=== PATIENT | male | born 1960 | race Caucasian/White ===

== ENCOUNTER 2016-09-01 16:52 | Day surgery (SDC) | payer OTHER ==
[~2016-09-01] VITALS: Ht 177.8 cm; Wt 92.1 kg
[~2016-09-01 16:52] MED LIST: ASPI-587 PO; CITA20TA4 PO; LOVA20TA2 PO; LOVA40TA2 PO; MTF500T PO; MULT-974 PO; NAPR-243 PO; NAPR-684 PO; OMEP20CA12 PO; OMG1KC PO; PSYL1PAC10 PO; RABE20TA PO; SIMV80TA3 PO
[2016-09-01 16:58] VITALS: BP 137/85
--- NOTE | 2016-09-01 17:33 | Cardiology History & Physical ---
HPI-Cardiology Cardiology H&P Date of Admission 09/01/16 Primary Care Physician Lm,[facility] Attending Physician Steve Boss MD, MA FACP [facility] Consulting Physician NAY CC: Chest pain HPI: 56 yo man with midsternal and L parasternal pain since yesterday afternoon that has waxed and waned but not resolved. Went to the [facility] from where he was transferred to this hosp. Pain radiates to mid back and L shoulder and L arm , varying from mild to severe, improved with nitro and with morphine. He has intermittently had nausea or flushing or a feeling of rapid heart beat with this discomfort. Discomfort gets somewhat worse with exertion. Has not such discomfort before, although did use to have chest pain three years that was somewhat different and that has not recurred. Also notes exertional dyspnea for the last 1-2 weeks Review of Systems-Cardiology Review of Systems Date Seen by Provider: Sep 01, 2016 Time Seen by Provider: 17:30 Constitutional: No weight loss, No weight gain Eyes: No vision change Ears/Nose/Throat: No ear discharge, No nasal drainage, No recent hearing loss Respiratory: As described under HPI Cardiovascular: As described under HPI Gastrointestinal: No constipation, No diarrhea, nausea, vomiting (one episode of vomiting on 08/30/16) Genitourinary: No dysuria, No hematuria, No urine frequency changes Musculoskeletal: back pain (chronic), joint pain (chronic), neck pain (chronic) Skin: No rash, No ulcerations Psychiatric/Neurological: No focal weakness, No syncope Hematologic: No bleeding abnormalities [id number]-[id number]-Xdaoos Hx Patient Social History Alcohol Use: Denies Use Recreational Drug Use: No Smoking Status: Former Smoker Recent Foreign Travel: No Physical Abuse Screen: No Sexual Abuse: No Immunizations Up To Date Tetanus Booster (TDap): More than 5yrs Past Medical History PMH As described under Assessment. Family Medical History Family Medical History: Mother had FL in her 30s Mother of [place] in her 50s Multiple uncles have had MIs at a relatively young age Allergies and Home Medications Allergies Coded Allergies: NKANo Known Allergies (Verified Allergy, Unknown, 09/01/05) Home Medications Aspirin 81 Mg Tablet.dr, 81 MG PO DAILY, (Reported) Citalopram Hydrobromide 20 Mg Tablet, 20 MG PO HS, (Reported) Lovastatin 40 Mg Tablet, 40 MG PO DAILY for 30 Days Prescribed by: VIJAY SAMANIEGO on 04/13/13 1558 Metformin Hcl 500 Mg Tab, 500 MG PO DAILY, #30 Prescribed by: VIJAY SAMANIEGO on 04/13/13 1558 Multivitamin 1 Each Tablet, 1 TAB PO DAILY, (Reported) Naproxen 500 Mg Tablet, 500 MG PO BID, (Reported) [place] 3 Polyunsat Fatty Acids 1,000 Mg Cap, 1,000 MG PO DAILY, (Reported) Omeprazole 20 Mg Capsule.dr, 20 MG PO DAILY, (Reported) Psyllium Seed/Sucrose 1 Each Packet, 1 PACKET PO BID, (Reported) Rabeprazole Sodium 20 Mg Tablet.dr, 20 MG PO DAILY for 30 Days Prescribed by: VIJAY SAMANIEGO on 04/13/138 Physical Exam-Cardiology Physical Exam Vital Signs/I&O Capillary Refill : Constitutional: AAO x 3, well-developed, well-nourished HEENT: PERRL, EOMI, hearing is well preserved, No xanthelasmas are seen Neck: No carotid bruit, carotid pulses are 2 + bilaterally, with good upstrokes Respiratory: No accessory muscle use, lungs clear to percussion, lungs clear to auscultation Cardiovascular: regular rate-rhythm, S1 and S2, systolic murmur (faint SPIKE at card base) Gastrointestinal: No tender, No guarding, No rebound, audible bowel sounds Extremities: No clubbing, No cyanosis, No significant edema Neurologic/Psychiatric: grossly intact Skin: No rash, No ulcerations Data Review Labs Labs on 09/01/16 at the [facility]: AST/ALT 22/23, CK 200, Troponin <0.02, Mg 2.2H/H 13.3/40.6, Plt 174k, Na 140, K 4.5, Cr 1.05 ECG Impression ECG Comment ECG at [facility] at 12:46 on 09/01/16: NSR without evidence of acute ischemia or infarction A/P-Cardiology Assessment/Admission Diagnosis * Chest discomfort of undetermined etiology * Hypertension * DM II, borderline * Former tobacco use, quit in early * Hyperlipidemia * Family history of early CAD * Anxiety and depression, by history, controlled Discussion and Recomendations * Given multiple risk factors and new chest pain some features of which are suggestive of new-onset angina, further card w/u is recommended. We discussed options. He chooses card cath. That appears reasonable. We discussed the rationale, procedure, risks, benefits, potential complications, and alternatives of card cath with him and answered questions. He understands and provides informed consent * Treatment with beta-blockers and aspirin has been initiated at the [facility] * Further recs to be based on his hosp course STEVE BOSS MD FACP [facility]S Sep 01, 2016 17:33
[2016-09-01] MEDS ORDERED: ENOXAPARIN 40 MG/0.4 ML (LOVENOX) SYR SC SCH (18:00)
[2016-09-01] MEDS ORDERED: ONDANSETRON 4 MG/2 ML (SDV) Z0FRAN IVP PRN (18:00)
[2016-09-01] MEDS ORDERED: CATHETER FLUSH 10 ML SYR IV PRN (18:15)
[2016-09-01] MEDS: NS IV 1000 ML 1,000 ML IV SCH (18:49)
[2016-09-01] MEDS: fentaNYL INJECTION 100 MCG/2 ML AMP IVP PRN (18:50)
[2016-09-01] MEDS ORDERED: FLUO20CA42 PO (19:57)
[2016-09-01] MEDS ORDERED: LISI-556 PO (19:57)
[2016-09-01] MEDS ORDERED: BUPR-42 PO (19:57)
[2016-09-01] MEDS ORDERED: METF500T4 PO (19:57)
[2016-09-01] MEDS ORDERED: METO-333 PO (19:57)
[2016-09-01] MEDS ORDERED: ALPR0.5T PO (19:57)
[2016-09-01 20:00] VITALS: BP 122/88
[2016-09-01] MEDS ORDERED: ALPRAZolam 0.5 MG (XANAX) TAB PO PRN (21:00)
[2016-09-01] MEDS ORDERED: buPROPion XL 150 MG (WELLBUTRIN XL) NON-FORM PO SCH (21:00)
[2016-09-01] MEDS ORDERED: ACETAMINOPHEN 500 MG TAB (TYLENOL) PO PRN (21:15)
[2016-09-02] VITALS: BP 120/86
[2016-09-02 04:00] VITALS: BP 114/76
[2016-09-02 04:21] LABS: BASOPHILS % (AUTO) 1 % (0-10); EOSINOPHILS # (AUTO) 0.2 10^3/uL (0.0-0.3); EOSINOPHILS % (AUTO) 4 % (0-10); LYMPHOCYTES # (AUTO) 2.8 X 10^3 (1.0-4.0); LYMPHOCYTES % (AUTO) 52 % (12-44); MEAN CORPUSCULAR HEMOGLOBIN 30 PG (25-34); MEAN CORPUSCULAR HGB CONC 33 G/DL (32-36); MEAN CORPUSCULAR VOLUME 92 FL (80-99); MONOCYTES # (AUTO) 0.5 X 10^3 (0.0-1.0); MONOCYTES % (AUTO) 9 % (0-12); NEUTROPHILS # (AUTO) 1.9 X 10^3 (1.8-7.8); NEUTROPHILS % (AUTO) 35 % (42-75); PLATELET COUNT 154 10^3/uL (130-400); RED BLOOD COUNT 4.34 10^6/uL (4.35-5.85); RED CELL DISTRIBUTION WIDTH 13.7 % (10.0-14.5); WHITE BLOOD COUNT 5.3 10^3/uL (4.3-11.0)
[2016-09-02 04:29] LABS: PROTHROMBIN TIME PATIENT 12.6 SEC (12.2-14.7)
[2016-09-02 04:47] LABS: ALANINE AMINOTRANSFERASE 20 U/L (0-55); ALBUMIN 3.8 GM/DL (3.2-4.5); ANION GAP 12 MMOL/L (5-14); ASPARTATE AMINO TRANSFERASE 20 U/L (5-34); BILIRUBIN,TOTAL 0.4 MG/DL (0.1-1.0); BLOOD UREA NITROGEN 13 MG/DL (7-18); BUN/CREATININE RATIO 13 (0-20); CARBON DIOXIDE 22 MMOL/L (21-32); CHLORIDE 108 MMOL/L (98-107); CHOLESTEROL 240 MG/DL (< 200); CREATININE SERUM 1.01 MG/DL (0.60-1.30); DIRECT LDL 172 MG/DL (1-129); GFR ESTIMATED > 60; GLUCOSE 90 MG/DL (70-105); HEMOLYSIS 8 (0-29); ICTERUS 0.5 (0-1.9); LIPEMIA 7 (0-49); MAGNESIUM 2.2 MG/DL (1.8-2.4); SODIUM 142 MMOL/L (135-145); TOTAL PROTEIN 6.3 GM/DL (6.4-8.2); TRIGLYCERIDES 242 MG/DL (<150); VLDL CHOLESTEROL 48 MG/DL (5-40)
[2016-09-02] MEDS ORDERED: buPROPion SR 150 MG (WELLBUTRIN SR) TAB PO SCH (07:00)
[2016-09-02] MEDS ORDERED: metFORMIN 500 MG (GLUCOPHAGE) TAB PO SCH (07:00)
[2016-09-02] MEDS ORDERED: PANTOPRAZOLE 40 MG (PROTONIX) TAB PO SCH (07:00)
[2016-09-02 08:00] VITALS: BP 132/89
[2016-09-02] MEDS ORDERED: OMEGA 3 (FISH OIL) 1000 MG CAP PO SCH (08:00)
[2016-09-02] MEDS ORDERED: MULTIVIT W/MINERALS TAB (THERAGRAN M) PO SCH (08:00)
--- NOTE | 2016-09-02 08:35 | Diagnostic Imaging Report ---
PA and lateral views of the chest. INDICATION: Chest pain. FINDINGS: The lungs are hyperinflated. The heart size is normal. No effusion or pneumothorax. No focal consolidation. The mediastinum and harriet appear unremarkable. IMPRESSION: Hyperinflated clear lungs. Dictated by: Dictated on workstation # [id number]
[2016-09-02] MEDS ORDERED: NON-FORMULARY MEDICATION 1 EA EA (Rabeprazole Sodium (Aciphex) 20 MG) PO SCH (09:00)
[2016-09-02] MEDS ORDERED: ASPIRIN 81 MG CHEW (CHILDREN'S ASA) PO SCH (09:00)
[2016-09-02] MEDS ORDERED: lisINopril 5 MG (PRINIVIL) TABLET PO SCH (09:00)
[2016-09-02] MEDS ORDERED: meTOproloL SUCCINATE 50 MG (TOPROL XL) TAB PO SCH (09:00)
[2016-09-02] MEDS ORDERED: FLUoxetine HCL 20 MG (PROzac) CAP PO SCH (09:00)
[2016-09-02] MEDS ORDERED: NON-FORMULARY MEDICATION 1 EA EA (Lovastatin 40 MG) PO SCH (09:00)
[2016-09-02] MEDS: fentaNYL INJECTION 100 MCG/2 ML AMP IVP PRN (09:01)
[2016-09-02] MEDS: NS IV 1000 ML 1,000 ML IV SCH (09:07)
[2016-09-02] MEDS ORDERED: NS IV 1000 ML 0 ML ONE (10:56)
[2016-09-02] MEDS ORDERED: HEParin (CATH LAB) 2,000 ML IV ONE (10:56)
[2016-09-02] MEDS ORDERED: PSYL174P2 PO (11:08)
[2016-09-02] MEDS ORDERED: LOVA40TA2 PO (11:08)
[2016-09-02] MEDS ORDERED: fentaNYL INJECTION 100 MCG/2 ML AMP ONE (11:10)
[2016-09-02] MEDS ORDERED: diphenhydrAMINE 50 MG/ML INJ (BENADRYL) ONE (11:10)
[2016-09-02] MEDS ORDERED: MIDAZOLAM 5 MG/5 ML (VERSED) VIAL ONE (11:10)
--- NOTE | 2016-09-02 11:16 | Cardiac Procedure Note-CS/ASA ---
Pre-Procedure Note Pre-Op Procedure Note H&P Reviewed The H&P was reviewed, patient examined and no changes noted. Date H&P Reviewed: Sep 02, 2016 Time H&P Reviewed: 11:16 Conscious Sedation Pre-Proced Time Reviewed: 11:16 ASA Class: 3 Airway Mallampati Classification: (tribe appropriate class) I. II. III, IV Lungs Heart ASA score ASA 1: a normal healthy patient ASA 2: a patient with a mild systemic disease (mid diabetes, controlled hypertension, obesity ASA 3: a patient with a severe systemic disease that limits activity (angina , COPD, prior Myocardial infarction) ASA 4: a patient with an incapacitating disease that is a constant threat to life (CHF, renal failure) ASA 5: a moribund patient not expected to survive 24 hrs. (ruptured aneurysm) ASA 6: a declared brain patient whose organs are being harvested. For emergent operations, add the letter E after the classification Grade 2 Sedation Plan: Analgesia, Amnesia, Plan communicated to team members, Discussed options with patient/fam, Discussed risks with patient/fam Note The patient is an appropriate candidate to undergo the planned procedure, sedation, and anesthesia. The patient immediately re-assessed prior to indication. CONCEPCION ZELAYA MD FACP [facility]S Sep 02, 2016 11:16
[2016-09-02 12:00] VITALS: BP 128/72
[2016-09-02] MEDS ORDERED: NS IV 1000 ML 1,000 ML IV SCH (12:31)
--- NOTE | 2016-09-02 12:40 | Progress Note-Cardiology ---
Cardiology SOAP Progress Note Subjective: Has continued to have chest discomfort, although much better compared to two days ago. No pleuritic component. No palp or syncope or dyspnea or other symptoms Objective: I&O/Vital Signs Vital Sign - Last 12Hours 09/02/16 09/02/16 09/02/16 09/02/16 01:00 04:00 04:00 07:00 Temp 97.8 Pulse 70 61 70 Resp 21 B/P (MAP) 114/76 Pulse Ox 98 97 O2 Delivery Room Air Room Air 09/02/16 09/02/16 09/02/16 08:00 08:00 09:00 Temp 97.4 Pulse 78 Resp 18 B/P (MAP) 132/89 Pulse Ox 98 98 98 O2 Delivery Room Air Room Air Room Air Intake and Output 09/02/16 00:00 Intake Total 100 ml Balance 100 ml Weight (Pounds): 203 Weight (Ounces): 0.0 Weight (Calculated Kilograms): 92.657491 Constitutional: AAO x 3, well-developed, well-nourished Respiratory: No accessory muscle use, lungs clear to percussion, lungs clear to auscultation Cardiovascular: regular rate-rhythm, S1 and S2, systolic murmur (faint SPIKE at card base) Gastrointestional: No tender, No guarding, No rebound, audible bowel sounds Extremities: No clubbing, No cyanosis, No significant edema Neurologic/Psychiatric: grossly intact Skin: No rash, No ulcerations Results/Procedures: Labs Laboratory Tests 09/01/16 18:05: Troponin I < 0.30 09/02/16 03:32: White Blood Count 5.3, Red Blood Count 4.34L, Hemoglobin 13.1L, Hematocrit 40, Mean Corpuscular Volume 92, Mean Corpuscular Hemoglobin 30, Mean Corpuscular Hemoglobin Concent 33, Red Cell Distribution Width 13.7, Platelet Count 154, Mean Platelet Volume 10.0, Neutrophils (%) (Auto) 35L, Lymphocytes (%) (Auto) 52H, Monocytes (%) (Auto) 9, Eosinophils (%) (Auto) 4, Basophils (%) (Auto) 1, Neutrophils # (Auto) 1.9, Lymphocytes # (Auto) 2.8, Monocytes # (Auto) 0.5, Eosinophils # (Auto) 0.2, Basophils # (Auto) 0.0, Prothrombin Time 12.6, INR Comment 1.0, Activated Partial Thromboplast Time 31, Sodium Level 142, Potassium Level 4.0, Chloride Level 108H, Carbon Dioxide Level 22, Anion Gap 12 , Blood Urea Nitrogen 13, Creatinine 1.01, Estimat Glomerular Filtration Rate > 60, BUN/Creatinine Ratio 13, Glucose Level 90, Calcium Level 9.0, Magnesium Level 2.2, Total Bilirubin 0.4, Aspartate Amino Transf (AST/SGOT) 20, Alanine Aminotransferase (ALT/SGPT) 20, Alkaline Phosphatase 98, Total Protein 6.3L, Albumin 3.8, Triglycerides Level 242H, Cholesterol Level 240H, LDL Cholesterol Direct 172H, VLDL Cholesterol 48H, HDL Cholesterol 34L, Thyroid Stimulating Hormone (TSH) 1.70 Laboratory Tests 09/02/16 03:32 A/P: Assessment: Chest discomfort of undetermined etiology, non-cardiac Cardiac cath of 09/02/16: angiographically normal coronaries, LVEF 65%, LVEDP 15 mmHg, no significant MR, no evidence of thoracic aortic aneurysm or dissection Echo of 09/02/16: normal LVEF (50-55%), no significant valvular heart disease, no evidence of intracardiac shunt or pulmonary hypertension COPD suspected. Chest x-ray of 09/02/16: hyperinflation of lungs Hypertension DM II, borderline Former tobacco use, quit in early Hyperlipidemia, not well controlled Family history of early CAD Anxiety and depression, by history, controlled Plan: * We discussed the findings of his card w/u with him and his and answered questions * No evidence of a card etiology for symptoms * Symptoms much improved * We have advise f/u with his PCP AZIZA for eval for noncardiac causes of chest discomfort * Risk factor modification discussed and advised * We have recommended statin therapy for hyperlipidemia and have advised f/u lab work in 4-6 weeks CONCEPCION ZELAYA MD FACP [facility] CCDS Sep 02, 2016 12:40
[2016-09-02] MEDS ORDERED: PATIENT MAY USE OWN MEDS, ALL PO SCH (12:45)
--- NOTE | 2016-09-02 12:56 | Cardiology Discharge Summary ---
Diagnosis/Chief Complaint Date of Admission Sep 01, 2016 at 16:52 Date of Discharge Admission Diagnosis * Chest discomfort of undetermined etiology * Hypertension * DM II, borderline * Former tobacco use, quit in early * Hyperlipidemia * Family history of early CAD * Anxiety and depression, by history, controlled Final/Discharge Diagnosis Chest discomfort of undetermined etiology, non-cardiac Cardiac cath of 09/02/16: angiographically normal coronaries, LVEF 65%, LVEDP 15 mmHg, no significant MR, no evidence of thoracic aortic aneurysm or dissection Echo of 09/02/16: normal LVEF (50-55%), no significant valvular heart disease, no evidence of intracardiac shunt or pulmonary hypertension COPD suspected. Chest x-ray of 09/02/16: hyperinflation of lungs Hypertension DM II, borderline Former tobacco use, quit in early Hyperlipidemia, not well controlled Family history of early CAD Anxiety and depression, by history, controlled Chief Complaint/HPI Chief Complaint/HPI CC: Chest pain HPI: 56 yo man with midsternal and L parasternal pain since yesterday afternoon that has waxed and waned but not resolved. Went to the [facility] from where he was transferred to this hosp. Pain radiates to mid back and L shoulder and L arm , varying from mild to severe, improved with nitro and with morphine. He has intermittently had nausea or flushing or a feeling of rapid heart beat with this discomfort. Discomfort gets somewhat worse with exertion. Has not such discomfort before, although did use to have chest pain three years that was somewhat different and that has not recurred. Also notes exertional dyspnea for the last 1-2 weeks Discharge Summary Procedures cardiac cath and echo on 09/02/16 Discussion & Recommendations Home Medications Reviewed patient Home Medication Reconciliation Form Discharge Home Medications: Reviewed and agree with Discharge Medication list on patient's Discharge Instruction sheet Clinical Quality Measures DVT/VTE Risk/Contraindication: Risk Factor Score Per Nursin RFS Level Per Nursing on Admit: 2=Moderate CONCEPCION ZELAYA MD FACP [facility]S Sep 02, 2016 12:56
--- NOTE | 2016-09-02 12:59 | Discharge Inst-Post CATH ---
Discharge Inst-CATH Post Cardiac Cath D/C Inst Follow Up/Plan F/u with PCP AZIZA F/u with Dr Boss in 4-6 weeks CARDIAC CATH DISCHARGE INSTRUCTIONS *Hold Metformin for 48 hours post heart cath. ACTIVITY * Go Home directly and rest. * Limit activity of the leg (or wrist if it was used) for 7 days including aerobics, swimming, jogging, bicycling, etc. * Restrict stair-climbing for 7 days if possible, if not, climb up with your non -cath leg, then bring together on the same step. * Avoid lifting, pushing, pulling or excessive movement of the affected extremity for 7 days. * Customary sexual activity may be resumed after 2 days-use caution not to use a position that strains or causes pain to the affected extremity. * No driving for 24 hours. * NO SMOKING. * Avoid straining for bowel movements for 7 days. * Gentle walking on level ground is allowed. * Returning to work will depend on the type of procedure and the results. Your doctor will discuss this with you. CALL YOUR DOCTOR FOR ANY OF THE FOLLOWING: *If bleeding from the puncture site occurs- Apply gentle pressure to site with clean cloth and call your doctor or EMS. * If a knot or lump forms under the skin, increases in size, or causes pain. * If bruising appears to be worsening or moving further down your leg instead of disappearing. * Temperature above 101 F. CARE OF YOUR GROIN INCISION; * Bruising or purple discoloration of the skin near the puncture site is common. * You may shower only, no bathtub bathing for 5 days. Be careful to avoid slipping as your leg may feel stiff. * If a closure device was used on your femoral artery, please see the attached guide regarding care of the device and your leg. * REMOVE the dressing from your groin the next day after your procedure in the shower. CARE OF YOUR WRIST INCISION; * Bruising or purple discoloration of the skin near the puncture site is common. * You may shower. * DO NOT submerge wrist. * Remove dressing in 24 hours. CONCEPCION BOSS MD [facility]S Sep 02, 2016 12:59
--- NOTE | 2016-09-02 13:00 | Discharge Inst-Cardiology ---
Discharge Inst-Cardiac Discharge Medications Continued Medications: Alprazolam (Xanax) 0.5 Mg Tablet 0.5 MG PO TID, TAB Aspirin (Aspir 81) 81 Mg Tablet.dr 81 MG PO DAILY, TAB Bupropion HCl (Wellbutrin Xl) 150 Mg Tab.er.24h 150 MG PO BID, TAB LAST FILLED 07/08/16 #60 Fluoxetine HCl (Prozac) 20 Mg Capsule 20 MG PO DAILY, CAP Lisinopril (Lisinopril) 5 Mg Tablet 5 MG PO DAILY, TAB LAST FILLED 07/08/16 #30 Lovastatin (Lovastatin) 40 Mg Tablet 40 MG PO DAILY LAST FILLED 07/08/16 #30 Metoprolol Tartrate (Metoprolol Tartrate) 25 Mg Tablet 25 MG PO BID, TAB LAST FILLED 07/08/16 #60 Multivitamin (Multi Vitamin Daily) 1 Each Tablet 1 TAB PO DAILY [place] 3 Polyunsat Fatty Acids (Fish Oil) 1,000 Mg Cap 1000 MG PO DAILY, CAP Psyllium Husk/Aspartame (Metamucil Powder) 174 Gm Powder 1 TSP PO BID, EA Rabeprazole Sodium (Aciphex) 20 Mg Tablet.dr 20 MG PO DAILY for 30 Days, TAB Discontinued Medications: Metformin HCl (Metformin HCl) 500 Mg Tablet 500 MG PO BID, TAB LAST FILLED 07/08/16 #60 Naproxen (Naprosyn) 500 Mg Tablet 500 MG PO BID Patient Instructions Patient Instructions: Hold METFORMIN until the morning of 09/05/16 and then resume previous home dose of metformin No tobacco use CONCEPCION ZELAYA MD FACP [facility] CCDS Sep 02, 2016 13:00
--- NOTE | 2016-09-02 13:41 | CARDIAC CATHETERIZATION ---
DATE OF SERVICE: 09/02/2016 CARDIAC CATHETERIZATION REPORT HISTORY OF PRESENT ILLNESS: The patient is a 56-year-old man who has multiple coronary artery disease risk factors and who has been experiencing chest discomfort suggestive of new onset angina. Cardiac catheterization was carried out today after having obtained an informed consent. PROCEDURE: He was brought to the cardiac catheterization laboratory in a fasting state. The right groin was prepared and draped in usual sterile fashion. Lidocaine 1% for local anesthesia. Modified Seldinger technique was to used advance a 5-Ivorian sheath in the right femoral artery. Angiography of the right femoral artery was carried out through the sheath. A 5-Ivorian JL4 catheter for left coronary angiography. A 5-Ivorian JR4 catheter for right coronary angiography. A 5-Ivorian pigtail catheter was used for left heart catheterization and left ventricular angiography. The pigtail catheter was pulled back to the aortic arch and aortic arch angiography was performed. The pigtail was then removed. The patient was transferred to the holding area for manual sheath removal. He tolerated the procedure well. HEMODYNAMICS: Left ventricular end-diastolic pressure following coronary angiography was 15 mmHg. There was no significant pressure gradient on pullback across the aortic valve. Ascending aortic pressure was 138/90 with a mean of 99 mmHg. LEFT VENTRICULAR ANGIOGRAPHY: Left ventricular angiography was carried out in the right anterior oblique projection. Global left ventricular systolic function normal. No significant regional wall motion abnormalities seen. Left ventricular ejection fraction is approximately 65%. There does not appear to be significant mitral regurgitation. AORTIC ARCH ANGIOGRAPHY: Aortic arch angiography did not indicate any significant thoracic aortic aneurysm or dissection. The neck arteries, to the extent seen, do not exhibit significant disease. CORONARY ANGIOGRAPHY: Left main coronary artery, left anterior descending artery, left circumflex artery and right coronary artery are all angiographically normal. Right coronary artery is dominant. CONCLUSIONS: 1. No angiographically significant coronary artery disease. 2. Normal global left ventricular systolic function with ejection fraction approximately 65%. 3. Mild elevation of left ventricular end-diastolic pressure. 4. No significant mitral regurgitation. 5. No evidence of any thoracic aortic aneurysm or dissection. DISCUSSION AND RECOMMENDATIONS: Based on results of the study, chest discomfort does not appear to be of cardiac origin. Continuing risk factor modification is advised. Mild elevation of left ventricular end-diastolic pressure is likely related to hypertension. Blood pressure control is advised. Outpatient followup is advised. Job ID: [id number] DocumentID: [id number] Dictated Date: 09/02/2016 12:29:24 Saw Boss Date: 09/02/2016 12:59:27 Dictated By: CONCEPCION ZELAYA MD, MA, FACP, FACC,
[2016-09-02 16:00] VITALS: BP 116/67
[2016-09-02 16:50] VITALS: BP 116/67
[2016-09-02] MEDS ORDERED: SIMvastatin 20 MG (ZOCOR) TAB PO SCH (21:00)
--- OUTSIDE RECORDS SUMMARY | 2016-09-07 17:37 | XMS REPORT ---
Author ANASTASIIA Nixon [facility] eClinicalWorks Address Unknown Phone Unavailable Care Team Providers Care Skill Training Program Coordinator Name Role Phone ANASTASIIA QUIÑONEZ CP Unavailable Allergies, Adverse Reactions, Alerts Substance Reaction Event Type N.K.D.A. Info Not Available Non Drug Allergy Problems Problem Type Condition Code Onset Dates Condition Status Assessment Unsteady gait R26.81 Active Assessment Essential hypertension I10 Active Assessment History of fall Z91.81 Active Problem Carpal tunnel syndrome, right upper limb G56.01 Active Problem Mixed hyperlipidemia E78.2 Active Problem Low back pain without sciatica, unspecified back pain laterality M54.5 Active Assessment Pain in left shoulder M25.512 Active Assessment Other chronic pain G89.29 Active Problem Diabetes type 2, controlled E11.9 Active Assessment Lumbar neuritis M54.16 Active Medications Medication Code System Code Instructions Start Date End Date Status Dosage Fish Oil [facility] [address]-74 1000 MG Orally Once a day 1 capsule Metoprolol Tartrate [facility] 07715175774 25 MG Orally Twice a day 1 tablet Xanax [facility] [address]-47 0.5 MG Orally 2 times a day May 26, 2015 1 tablet Wellbutrin SR [facility] [id number] 150 MG Orally Twice a day 1 tablet Aciphex [facility] [address]-96 20 mg Orally Once a day 1 tablet Naprosyn [facility] [address]-78 500 MG Orally every 12 hrs 1 tablet as needed Lovastatin [facility] [address]-00 40 mg Once a day TAKE ONE TABLET Metformin HCl [facility] [address]-14 500 MG Twice a day TAKE ONE TABLET Multivitamins [facility] 68[address]99 Orally not defined Fluoxetine HCl [facility] [address]-51 20 mg Orally Once a day Nov 20, 2015 1 capsule in the morning Lisinopril [facility] [address]-41 5 mg Orally Once a day 1 tablet Aspirin Adult Low Strength [facility] [address]-66 81 MG Orally Once a day 1 tablet Procedures Procedure Coding System Code Date Office Visit, Est Pt., Level 3 CPT-4 03070 Nov 20, 2015 Vital Signs Date/Time: Nov 20, 2015 Cardiac Monitoring Heart Rate 68 bpm Weight 224.5 lbs Height 69 in BMI 33.15 Index Blood Pressure Diastolic 82 mmHg Blood Pressure Systolic 142 mmHg Results No Known Results Summary Purpose eClinicalWorks Submission
--- OUTSIDE RECORDS SUMMARY | 2016-09-07 17:37 | XMS REPORT ---
Author ANASTASIIA Nixon Organization eClinicalWorks Address Unknown Phone Unavailable Care Team Providers Care Home Appliance Washing Machine Mechanic Name Role Phone ANASTASIIA QUIÑONEZ CP Unavailable Allergies, Adverse Reactions, Alerts Substance Reaction Event Type N.K.D.A. Info Not Available Non Drug Allergy Problems Problem Type Condition Code Onset Dates Condition Status Problem Carpal tunnel syndrome, right upper limb G56.01 Active Problem Mixed hyperlipidemia E78.2 Active Problem Low back pain without sciatica, unspecified back pain laterality M54.5 Active Assessment Osteoarthritis, unspecified osteoarthritis type, unspecified site M19.90 Active Assessment ADHD (attention deficit hyperactivity disorder), inattentive type F90.0 Active Problem Diabetes type 2, controlled E11.9 Active Assessment Other abnormal glucose R73.09 Active Medications Medication Code System Code Instructions Start Date End Date Status Dosage Lovastatin [facility] [address]-27 40 MG Once a day TAKE ONE TABLET Metoprolol Tartrate [facility] [address]-94 25 MG Orally Twice a day October 11, 2014 1 tablet Aciphex [facility] [address]-36 20 MG Orally Once a day 1 tablet Aspirin Adult Low Strength [facility] [address]-39 81 MG Orally Once a day 1 tablet Metformin HCl [facility] [address]-38 500 MG Twice a day TAKE ONE TABLET Wellbutrin SR [facility] [address]-13 150 MG Orally Twice a day Jan 10, 2015 1 tablet Naprosyn [facility] [address]-88 500 MG Orally every 12 hrs 1 tablet as needed Procedures Procedure Coding System Code Date Office Visit, Est Pt., Level 3 CPT-4 37585 Jan 10, 2015 GLYCATED HEMOGLOBIN TEST CPT-4 17309 Jan 10, 2015 Vital Signs Date/Time: Jan 10, 2015 Temperature 98.4 F Weight 207.9 lbs Height 69 in BMI 30.70 Index Blood Pressure Diastolic 78 mmHg Blood Pressure Systolic 116 mmHg Cardiac Monitoring Heart Rate 88 bpm Results Name Result Date Reference Range Unit Abnormality Flag A1C (IN HOUSE) Summary Purpose eClinicalWorks Submission
--- OUTSIDE RECORDS SUMMARY | 2016-09-07 17:37 | XMS REPORT ---
Author ANASTASIIA Nixon Organization [employer] Address Unknown Phone Unavailable Care Team Providers Care Ndt Inspector Name Role Phone ANASTASIIA QUIÑONEZ CP Unavailable Allergies No Known Allergies Problems Problem Type Condition Code Onset Dates Condition Status Problem Carpal tunnel syndrome, right upper limb G56.01 Active Problem Mixed hyperlipidemia E78.2 Active Problem Low back pain without sciatica, unspecified back pain laterality M54.5 Active Problem Diabetes type 2, controlled E11.9 Active Medications No Known Medications Results No Known Results Summary Purpose [employer]ClinicalWorks Submission
--- OUTSIDE RECORDS SUMMARY | 2016-09-07 17:37 | XMS REPORT ---
Author ANASTASIIA Nixon [facility] [employer] Address Unknown Phone Unavailable Care Team Providers Care Cosmetic Manager Name Role Phone ANASTASIIA QUIÑONEZ CP Unavailable Allergies, Adverse Reactions, Alerts Substance Reaction Event Type N.K.D.A. Info Not Available Non Drug Allergy Problems Problem Type Condition Code Onset Dates Condition Status Problem Low back pain without sciatica, unspecified back pain laterality M54.5 Active Problem Carpal tunnel syndrome, right upper limb G56.01 Active Problem Arthritis M19.90 Active Assessment Diabetes type 2, controlled E11.9 Active Assessment Arthritis M19.90 Active Problem Mixed hyperlipidemia E78.2 Active Problem Diabetes type 2, controlled E11.9 Active Medications Medication Code System Code Instructions Start Date End Date Status Dosage Lisinopril [facility] [address]-94 5 mg Orally Once a day 1 tablet Aciphex [facility] [address]-02 20 mg Orally Once a day 1 tablet Wellbutrin SR [facility] 77576001618 150 MG Orally Twice a day 1 tablet Xanax [facility] [address]-83 0.5 MG Orally 2 times a day as needed for anxiety May 26, 2015 1 tablet Fish Oil [facility] [address]-10 1000 MG Orally Once a day 1 capsule Naprosyn [facility] [address]-30 500 MG Orally every 12 hrs 1 tablet as needed Lovastatin [facility] [address]-06 40 mg Once a day TAKE ONE TABLET Metformin HCl [facility] [address]-47 500 MG Twice a day TAKE ONE TABLET Metoprolol Tartrate [facility] 58015129113 25 MG Orally Twice a day 1 tablet Fluoxetine HCl [facility] [address]-13 20 mg Orally Once a day Nov 20, 2015 1 capsule in the morning Aspirin Adult Low Strength [facility] [address]-53 81 MG Orally Once a day 1 tablet Multivitamins [facility] [address]30 Orally not defined Procedures Procedure Coding System Code Date GLYCATED HEMOGLOBIN TEST CPT-4 49480 Dec 22, 2015 Office Visit, Est Pt., Level 3 CPT-4 83928 Dec 22, 2015 MICROALBUMIN, SEMIQUANT CPT-4 58925 Dec 22, 2015 Vital Signs Date/Time: Dec 22, 2015 Cardiac Monitoring Heart Rate 72 bpm Weight 222 lbs Height 69 in BMI 32.78 Index Blood Pressure Diastolic 80 mmHg Blood Pressure Systolic 140 mmHg Results Name Result Date Reference Range Unit Abnormality Flag A1C (IN HOUSE) ----A1C IN HOUSE 5.6 20151222 4.3 - 5.6 % ----Previous A1c 5.5 20151222 ----Lot [id number] ----Exp date 20151222 MICROALBUMIN, URINE (IN HOUSE) ----A:C (IN HOUSE) <30mg/g 20151222 ----CRE 200 [id number] ----Color yellow 20151222 ----ALB 10 [id number] ----Exp date 20151222 ----Clarity clear 20151222 ----Lot # [id number] Summary Purpose eClinicalWorks Submission
--- OUTSIDE RECORDS SUMMARY | 2016-09-07 17:38 | XMS REPORT ---
Author Author PARISA SHEPHERD Organization [employer] Address Unknown Phone Unavailable Care Team Providers Care Precast Concrete Ironworker Name Role Phone PARISA SHEPHERD CP Unavailable Allergies, Adverse Reactions, Alerts Substance Reaction Event Type N.K.D.A. Info Not Available Non Drug Allergy Problems Problem Type Condition Code Onset Dates Condition Status Problem Carpal tunnel syndrome, right upper limb G56.01 Active Problem Mixed hyperlipidemia E78.2 Active Problem Low back pain without sciatica, unspecified back pain laterality M54.5 Active Problem Diabetes type 2, controlled E11.9 Active Assessment Ingrown right big toenail L60.0 Active Medications Medication Code System Code Instructions Start Date End Date Status Dosage Metoprolol Tartrate [facility] [address]-76 25 MG Orally Twice a day October 11, 2014 1 tablet Metformin HCl [facility] [address]-23 500 MG Twice a day TAKE ONE TABLET Lisinopril [facility] [address]-92 5 MG Orally Once a day Jan 22, 2015 1 tablet Wellbutrin SR [facility] [address]-73 150 MG Orally Twice a day Jan 10, 2015 1 tablet Aciphex [facility] [address]-75 20 MG Orally Once a day 1 tablet Naprosyn [facility] [address]-67 500 MG Orally every 12 hrs 1 tablet as needed Aspirin Adult Low Strength [facility] [address]-99 81 MG Orally Once a day 1 tablet Lovastatin [facility] [address]-74 40 MG Once a day TAKE ONE TABLET Procedures Procedure Coding System Code Date REMOVAL OF NAIL BED CPT-4 17996 Mar 28, 2015 Vital Signs Date/Time: Mar 28, 2015 Temperature 98.7 F Weight 211.9 lbs Height 69 in BMI 31.29 Index Blood Pressure Diastolic 78 mmHg Blood Pressure Systolic 122 mmHg Results Name Result Date Reference Range Unit Abnormality Flag NAIL REMOVAL PERMANENT (PARTIAL OR COMPLETE) Summary Purpose eClinicalWorks Submission
--- OUTSIDE RECORDS SUMMARY | 2016-09-07 17:38 | XMS REPORT ---
Author ANASTASIIA Nixon Organization [employer] Address Unknown Phone Unavailable Care Team Providers Care Medical Billing Specialist Name Role Phone ANASTASIIA QUIÑONEZ CP Unavailable [...] Instructions Start Date End Date Status Dosage Wellbutrin SR [facility] [address]-34 150 MG Orally Twice a day Jan 10, 2015 1 tablet Results No Known Results Summary Purpose eClinicalWorks Submission
--- OUTSIDE RECORDS SUMMARY | 2016-09-07 17:38 | XMS REPORT ---
Author ANASTASIIA Nixon Organization [employer] Address Unknown Phone Unavailable Care Team Providers Care Tack Puller Name Role Phone ANASTASIIA QUIÑONEZ CP Unavailable [...] Start Date End Date Status Dosage Lisinopril [facility] [place] [address]-44 5 MG Orally Once a day Jan 22, 2015 1 tablet Results No Known Results Summary Purpose [employer]ClinicalWorks Submission
--- OUTSIDE RECORDS SUMMARY | 2016-09-07 17:38 | XMS REPORT ---
Author ANASTASIIA Nixon Organization [employer] Address Unknown Phone Unavailable Care Team Providers Care Needleworker Name Role Phone ANASTASIIA QUIÑONEZ CP Unavailable [...]
--- OUTSIDE RECORDS SUMMARY | 2016-09-07 17:38 | XMS REPORT | Continuity of Care Document ---
Author Author [facility] Organization [facility] Address Unknown Phone Unavailable Allergies Active Description Code Type Severity Reaction Onset Reported/Identified Relationship to Patient Clinical Status Yes NKANo Known Allergies NKA Miscellaneous Allergy Unknown N/ A 09/01/2005 Medications Problems Date Dx Coded Attending Type Code Diagnosis Diagnosed By 12/09/2010 272.4 HYPERLIPIDEMIA 12/09/2010 296.90 MOOD DISORDER 12/09/2010 ANASTASIIA QUIÑONEZ APRN T 272.4 HYPERLIPIDEMIA 12/09/2010 ANASTAISIA QUIÑONEZ APRN T 296.90 MOOD DISORDER 12/09/2010 272.4 HYPERLIPIDEMIA 12/09/2010 296.90 MOOD DISORDER 12/09/2010 272.4 HYPERLIPIDEMIA 12/09/2010 296.90 MOOD DISORDER 12/09/2010 WHITE DDS, KIMBERLY J 272.4 HYPERLIPIDEMIA 12/09/2010 WHITE DDS, KIMBERLY J 296.90 MOOD DISORDER 12/09/2010 ANASTASIIA QUIÑONEZ APRN T 272.4 HYPERLIPIDEMIA 12/09/2010 OLAMIDE CHANG ANASTASIIA T 296.90 MOOD DISORDER 12/09/2010 SAMANIEGO DO, VIJAY K 272.4 HYPERLIPIDEMIA 12/09/2010 SAMANIEGO DO, VIJAY K 296.90 MOOD DISORDER 12/09/2010 ANASTASIIA QUIÑONEZ APRN T 272.4 HYPERLIPIDEMIA 12/09/2010 OLAMIDE CHANG ANASTASIIA T 296.90 MOOD DISORDER 12/09/2010 ANASTASIIA QUIÑONEZ APRN T 272.4 HYPERLIPIDEMIA 12/09/2010 OLAMIDE CHANG ANASTASIIA T 296.90 MOOD DISORDER 12/09/2010 OLAMIDE CHANG ANASTASIIA T 272.4 HYPERLIPIDEMIA 12/09/2010 OLAMIDE CHANG ANASTASIIA T 296.90 MOOD DISORDER 12/09/2010 WITT DDS DAVID 272.4 HYPERLIPIDEMIA 12/09/2010 WITT DDS, DAVID 296.90 MOOD DISORDER 12/09/2010 ANASTASIIA QUIÑONEZ APRN T 272.4 HYPERLIPIDEMIA 12/09/2010 ANASTASIIA QUIÑONEZ APRN T 296.90 MOOD DISORDER 12/09/2010 WENDIE SOTELO MD 272.4 HYPERLIPIDEMIA 12/09/2010 WENDIE SOTELO MD 296.90 MOOD DISORDER 12/09/2010 ANASTASIIA QUIÑONEZ APRN 272.4 HYPERLIPIDEMIA 12/09/2010 ANASTASIIA QUIÑONEZ APRN 296.90 MOOD DISORDER 12/09/2010 ANASTASIIA QUIÑONEZ APRN 272.4 HYPERLIPIDEMIA 12/09/2010 ANASTASIIA QUIÑONEZ APRN 296.90 MOOD DISORDER 12/09/2010 ANASTASIIA QUIÑONEZ APRN 272.4 HYPERLIPIDEMIA 12/09/2010 ANASTASIIA QUIÑONEZ APRN 296.90 MOOD DISORDER 12/09/2010 SAMANIEGO DO VIJAY K 272.4 HYPERLIPIDEMIA 12/09/2010 SAMANIEGO DO VIJAY K 296.90 MOOD DISORDER 05/23/2012 719.41 PAIN IN JOINT INVOLVING SHOULDER REGION 05/23/2012 719.45 PAIN IN JOINT INVOLVING PELVIC REGION AND THIGH 05/23/2012 724.2 LUMBAGO 05/23/2012 ANASTASIIA QUIÑONEZ APRN 719.41 PAIN IN JOINT INVOLVING SHOULDER REGION 05/23/2012 ANASTASIIA QUIÑONEZ APRN 719.45 PAIN IN JOINT INVOLVING PELVIC REGION AND THIGH 05/23/2012 ANASTASIIA QUIÑONEZ APRN 724.2 LUMBAGO 05/23/2012 719.41 PAIN IN JOINT INVOLVING SHOULDER REGION 05/23/2012 719.45 PAIN IN JOINT INVOLVING PELVIC REGION AND THIGH 05/23/2012 724.2 LUMBAGO 05/23/2012 719.41 PAIN IN JOINT INVOLVING SHOULDER REGION 05/23/2012 719.45 PAIN IN JOINT INVOLVING PELVIC REGION AND THIGH 05/23/2012 724.2 LUMBAGO 05/23/2012 KIMBERLY MCMAHAN DDS 719.41 PAIN IN JOINT INVOLVING SHOULDER REGION 05/23/2012 KIMBERLY MCMAHAN DDS 719.45 PAIN IN JOINT INVOLVING PELVIC REGION AND THIGH 05/23/2012 KIMBERLY MCMAHAN DDS J 724.2 LUMBAGO 05/23/2012 ANASTASIIA QUIÑONEZ APRN 719.41 PAIN IN JOINT INVOLVING SHOULDER REGION 05/23/2012 ANASTASIIA QUIÑONEZ APRN 719.45 PAIN IN JOINT INVOLVING PELVIC REGION AND THIGH 05/23/2012 ANASTASIIA QUIÑONEZ APRN 724.2 LUMBAGO 05/23/2012 SAMANIEGO DOVALERYA K 719.41 PAIN IN JOINT INVOLVING SHOULDER REGION 05/23/2012 SAMANIEGO DOVALERYA K 719.45 PAIN IN JOINT INVOLVING PELVIC REGION AND THIGH 05/23/2012 ADEN SMITH VIJAY K 724.2 LUMBAGO 05/23/2012 ANASTASIIA QUIÑONEZ APRN 719.41 PAIN IN JOINT INVOLVING SHOULDER REGION 05/23/2012 ANASTASIIA QUIÑONEZ APRN 719.45 PAIN IN JOINT INVOLVING PELVIC REGION AND THIGH 05/23/2012 ANASTASIIA QUIÑONEZ APRN 724.2 LUMBAGO 05/23/2012 ANASTASIIA QUIÑONEZ APRN 719.41 PAIN IN JOINT INVOLVING SHOULDER REGION 05/23/2012 ANASTASIIA QUIÑONEZ APRN 719.45 PAIN IN JOINT INVOLVING PELVIC REGION AND THIGH 05/23/2012 ANASTASIIA QUIÑONEZ APRN 724.2 LUMBAGO 05/23/2012 ANASTASIIA QUIÑONEZ APRN 719.41 PAIN IN JOINT INVOLVING SHOULDER REGION 05/23/2012 ANASTASIIA QUIÑONEZ APRN 719.45 PAIN IN JOINT INVOLVING PELVIC REGION AND THIGH 05/23/2012 ANASTASIIA QUIÑONEZ APRN 724.2 LUMBAGO 05/23/2012 EDUAR STOKESSDAVID 719.41 PAIN IN JOINT INVOLVING SHOULDER REGION 05/23/2012 EDUAR DDSDAVID 719.45 PAIN IN JOINT INVOLVING PELVIC REGION AND THIGH 05/23/2012 WITT DDSDAVID 724.2 LUMBAGO 05/23/2012 ANASTASIIA QUIÑONEZ APRN 719.41 PAIN IN JOINT INVOLVING SHOULDER REGION 05/23/2012 ANASTASIIA QUIÑONEZ APRN 719.45 PAIN IN JOINT INVOLVING PELVIC REGION AND THIGH 05/23/2012 ANASTASIIA QUIÑONEZ APRN 724.2 LUMBAGO 05/23/2012 WENDIE SOTELO MD 719.41 PAIN IN JOINT INVOLVING SHOULDER REGION 05/23/2012 WENDIE SOTELO MD 719.45 PAIN IN JOINT INVOLVING PELVIC REGION AND THIGH 05/23/2012 WENDIE SOTELO MD 724.2 LUMBAGO 05/23/2012 ANASTASIIA QUIÑONEZ APRN 719.41 PAIN IN JOINT INVOLVING SHOULDER REGION 05/23/2012 ANASTASIIA QUIÑONEZ APRN 719.45 PAIN IN JOINT INVOLVING PELVIC REGION AND THIGH 05/23/2012 ANASTASIIA QUIÑONEZ APRN 724.2 LUMBAGO 05/23/2012 ANASTASIIA QUIÑONEZ APRN 719.41 PAIN IN JOINT INVOLVING SHOULDER REGION 05/23/2012 ANASTASIIA QUIÑONEZ APRN 719.45 PAIN IN JOINT INVOLVING PELVIC REGION AND THIGH 05/23/2012 ANASTASIIA QUIÑONEZ APRN 724.2 LUMBAGO 05/23/2012 ANASTASIIA QUIÑONEZ APRN 719.41 PAIN IN JOINT INVOLVING SHOULDER REGION 05/23/2012 ANASTASIIA QUIÑONEZ APRN 719.45 PAIN IN JOINT INVOLVING PELVIC REGION AND THIGH 05/23/2012 ANASTASIIA QUIÑONEZ APRN 724.2 LUMBAGO 05/23/2012 VALERY SAMANIEGO DOA K 719.41 PAIN IN JOINT INVOLVING SHOULDER REGION 05/23/2012 SAMANIEGO DO VIJAY K 719.45 PAIN IN JOINT INVOLVING PELVIC REGION AND THIGH 05/23/2012 SAMANIEGO VALERY SMITHA K 724.2 LUMBAGO 10/27/2012 788.1 DYSURIA 10/27/2012 790.29 HYPERGLYCEMIA 10/27/2012 788.1 DYSURIA 10/27/2012 790.29 HYPERGLYCEMIA 10/27/2012 WHITE DDS, KIMBERLY J 788.1 DYSURIA 10/27/2012 WHITE DDS, KIMBERLY J 790.29 HYPERGLYCEMIA 10/27/2012 ANASTASIIA QUIÑONEZ APRN 788.1 DYSURIA 10/27/2012 ANASTASIIA QUIÑONEZ APRN 790.29 HYPERGLYCEMIA 10/27/2012 VALERY SAMANIEGO DOA K 788.1 DYSURIA 10/27/2012 VALERY SAMANIEGO DOA K 790.29 HYPERGLYCEMIA 10/27/2012 ANASTASIIA QUIÑONEZ APRN 788.1 DYSURIA 10/27/2012 ANASTASIIA QUIÑONEZ APRN 790.29 HYPERGLYCEMIA 10/27/2012 ANASTASIIA QUIÑONEZ APRN 788.1 DYSURIA 10/27/2012 ANASTASIIA QUIÑONEZ APRN 790.29 HYPERGLYCEMIA 10/27/2012 ANASTASIIA QUIÑONEZ APRN 788.1 DYSURIA 10/27/2012 ANASTASIIA QUIÑONEZ APRN 790.29 HYPERGLYCEMIA 10/27/2012 WITT DDS, DAVID 788.1 DYSURIA 10/27/2012 WITT DAVID VELOZ 790.29 HYPERGLYCEMIA 10/27/2012 ANASTASIIA QUIÑONEZ APRN 788.1 DYSURIA 10/27/2012 ANASTASIIA QUIÑONEZ APRN 790.29 HYPERGLYCEMIA 10/27/2012 WENDIE SOTELO MD 788.1 DYSURIA 10/27/2012 WENDIE SOTELO MD 790.29 HYPERGLYCEMIA 10/27/2012 ANASTASIIA QUIÑONEZ APRN T 788.1 DYSURIA 10/27/2012 ANASTASIIA QUIÑONEZ APRN T 790.29 HYPERGLYCEMIA 10/27/2012 ANASTASIIA QUIÑONEZ APRN T 788.1 DYSURIA 10/27/2012 ANASTASIIA QUIÑONEZ APRN T 790.29 HYPERGLYCEMIA 10/27/2012 ANASTASIIA QUIÑONEZ APRN 788.1 DYSURIA 10/27/2012 ANASTASIIA QUIÑONEZ APRN 790.29 HYPERGLYCEMIA 10/27/2012 SAMANIEGO DO VIJAY K 788.1 DYSURIA 10/27/2012 SAMANIEGO , VIJAY K 790.29 HYPERGLYCEMIA 04/13/2013 SAMANIEGO , VIJAY K Ot 272.4 HYPERLIPIDEMIA NEC/NOS 04/13/2013 SAMANIEGO , VIJAY K Ot 300.00 ANXIETY STATE NOS 04/13/2013 SAMANIEGO , VIJAY K Ot 397.0 TRICUSPID VALVE DISEASE 04/13/2013 SAMANIEGO DO VIJAY K Ot 401.9 HYPERTENSION NOS 04/13/2013 SAMANIEGO DO VIJAY K Ot 424.0 MITRAL VALVE DISORDER 04/13/2013 ADEN SMITH VIJAY K Ot 530.81 ESOPHAGEAL REFLUX 04/13/2013 ADEN SMITH VIJAY K Ot 719.49 JOINT PAIN-MULT JTS 04/13/2013 SAMANIEGO , VIJAY K Ot 780.8 GENERALIZED HYPERHIDROSIS 04/13/2013 ADEN SMITH VIJAY K Ot 782.0 SKIN SENSATION DISTURB 04/13/2013 SAMANIEGO , VIJAY K Ot 785.1 PALPITATIONS 04/13/2013 SAMANIEGO , VIJAY K Ot 786.50 CHEST PAIN NOS 04/13/2013 ADEN SMITH VIJAY K Ot 787.02 NAUSEA ALONE 04/13/2013 ADEN SMITH VIJAY K Ot 790.29 OTHER ABNORMAL GLUCOSE 04/13/2013 ADEN SMITH VIJAY K Ot V15.82 HISTORY OF TOBACCO USE 04/13/2013 ADEN SMITH VIJAY K Ot V17.3 FAM HX-ISCHEM HEART DIS 04/20/2013 ANASTASIIA QUIÑONEZ APRN 786.50 CHEST PAIN 04/20/2013 ADEN SMITH VIJAY K 786.50 CHEST PAIN 04/20/2013 ANASTASIIA QUIÑONEZ APRN 786.50 CHEST PAIN 04/20/2013 ANASTASIIA QUIÑONEZ APRN 786.50 CHEST PAIN 04/20/2013 ANASTASIIA QUIÑONEZ APRN 786.50 CHEST PAIN 04/20/2013 WITT DDS, DAVID 786.50 CHEST PAIN 04/20/2013 OLAMIDE CHANG, ANASTASIIA T 786.50 CHEST PAIN 04/20/2013 WENDIE SOTELO MD 786.50 CHEST PAIN 04/20/2013 ANASTASIIA QUIÑONEZ APRN T 786.50 CHEST PAIN 04/20/2013 ANASTASIIA QUIÑONEZ APRN T 786.50 CHEST PAIN 04/20/2013 OLAMIDE CHANG, ANASTASIIA T 786.50 CHEST PAIN 04/20/2013 SAMANIEGO VIJAY SMITH 786.50 CHEST PAIN 06/04/2013 ANASTASIIA QUIÑONEZ APRN T 716.90 ARTHRITIS/ ARTHROPATHY, UNSPECIFIED 06/04/2013 ANASTASIIA QUIÑONEZ APRN T 727.49 OTHER GANGLION AND CYST OF SYNOVIUM TENDON AND BURSA 06/04/2013 ANASTASIIA QUIÑONEZ APRN T 716.90 ARTHRITIS/ ARTHROPATHY, UNSPECIFIED 06/04/2013 ANASTASIIA QUIÑONEZ APRN T 727.49 OTHER GANGLION AND CYST OF SYNOVIUM TENDON AND BURSA 06/04/2013 ANASTASIIA QUIÑONEZ APRN T 716.90 ARTHRITIS/ ARTHROPATHY, UNSPECIFIED 06/04/2013 ANASTASIIA QUIÑONEZ APRN T 727.49 OTHER GANGLION AND CYST OF SYNOVIUM TENDON AND BURSA 06/04/2013 WITT DDS, DAVID 716.90 ARTHRITIS/ ARTHROPATHY, UNSPECIFIED 06/04/2013 WITT DDS, DAVID 727.49 OTHER GANGLION AND CYST OF SYNOVIUM TENDON AND BURSA 06/04/2013 ANASTASIIA QUIÑONEZ APRN T 716.90 ARTHRITIS/ ARTHROPATHY, UNSPECIFIED 06/04/2013 ANASTASIIA QUIÑONEZ APRN T 727.49 OTHER GANGLION AND CYST OF SYNOVIUM TENDON AND BURSA 06/04/2013 WENDIE SOTELO MD 716.90 ARTHRITIS/ ARTHROPATHY, UNSPECIFIED 06/04/2013 WENDIE SOTELO MD 727.49 OTHER GANGLION AND CYST OF SYNOVIUM TENDON AND BURSA 06/04/2013 ANASTASIIA QUIÑONEZ APRN T 716.90 ARTHRITIS/ ARTHROPATHY, UNSPECIFIED 06/04/2013 ANASTASIIA QUIÑONEZ APRN T 727.49 OTHER GANGLION AND CYST OF SYNOVIUM TENDON AND BURSA 06/04/2013 ANASTASIIA QUIÑONEZ APRN T 716.90 ARTHRITIS/ ARTHROPATHY, UNSPECIFIED 06/04/2013 ANASTASIIA QUIÑONEZ APRN T 727.49 OTHER GANGLION AND CYST OF SYNOVIUM TENDON AND BURSA 06/04/2013 ANASTASIIA QUIÑONEZ APRN 716.90 ARTHRITIS/ ARTHROPATHY, UNSPECIFIED 06/04/2013 ANASTASIIA QUIÑONEZ APRN 727.49 OTHER GANGLION AND CYST OF SYNOVIUM TENDON AND BURSA 06/04/2013 ADEN SMITH VIJAY K 716.90 ARTHRITIS/ ARTHROPATHY, UNSPECIFIED 06/04/2013 SAMANIEGO DO, VIJAY K 727.49 OTHER GANGLION AND CYST OF SYNOVIUM TENDON AND BURSA 07/09/2013 ANASTASIIA QUIÑONEZ APRN 354.0 CARPAL TUNNEL SYNDROME 07/09/2013 ANASTASIIA QUIÑONEZ APRN 381.81 DYSFUNCTION OF EUSTACHIAN TUBE 07/09/2013 ANASTASIIA QUIÑONEZ APRN 701.1 KERATODERMA ACQUIRED 07/09/2013 WENDIE SOTELO MD 354.0 CARPAL TUNNEL SYNDROME 07/09/2013 WENDIE SOTELO MD 381.81 DYSFUNCTION OF EUSTACHIAN TUBE 07/09/2013 WENDIE SOTELO MD 701.1 KERATODERMA ACQUIRED 07/09/2013 ANASTASIIA QUIÑONEZ APRN 354.0 CARPAL TUNNEL SYNDROME 07/09/2013 ANASTASIIA QUIÑONEZ APRN 381.81 DYSFUNCTION OF EUSTACHIAN TUBE 07/09/2013 ANASTASIIA QUIÑONEZ APRN 701.1 KERATODERMA ACQUIRED 07/09/2013 ANASTASIIA QUIÑONEZ APRN 354.0 CARPAL TUNNEL SYNDROME 07/09/2013 ANASTASIIA QUIÑONEZ APRN 381.81 DYSFUNCTION OF EUSTACHIAN TUBE 07/09/2013 ANASTASIIA QUIÑONEZ APRN 701.1 KERATODERMA ACQUIRED 07/09/2013 ANASTASIIA QUIÑONEZ APRN 354.0 CARPAL TUNNEL SYNDROME 07/09/2013 ANASTASIIA QUIÑONEZ APRN 381.81 DYSFUNCTION OF EUSTACHIAN TUBE 07/09/2013 ANASTASIIA QUIÑONEZ APRN 701.1 KERATODERMA ACQUIRED 07/09/2013 VALERY SAMANIEGO DOA K 354.0 CARPAL TUNNEL SYNDROME 07/09/2013 VALERY SAMANIEGO DOA K 381.81 DYSFUNCTION OF EUSTACHIAN TUBE 07/09/2013 ADEN SMITH VIJAY K 701.1 KERATODERMA ACQUIRED 12/17/2013 ANASTASIIA QUIÑONEZ APRN 110.1 ONYCHOMYCOSIS 12/17/2013 ANASTASIIA QUIÑONEZ APRN 110.1 ONYCHOMYCOSIS 12/17/2013 ADEN SMITH VIJAY K 110.1 ONYCHOMYCOSIS 04/12/2014 VIJAY SAMANIEGO DO 302.72 ERECTILE DISORDER Procedures Code [place] [address] ROUTINE VENIPUNCTURE 06/15/2012 81580 CBC 06/15/2012 92253 LIPID PANEL 06/15 22103 CMP 06/15/2012 [id number] GFR CALC (RESULT ONLY) 06/15/2012 93782 ROUTINE VENIPUNCTURE 10/27/2012 17940 A1C (IN-HOUSE) 89274 PSA FREE AND TOTAL 10/27/2012 14679 TESTOSTERONE PANEL (FREE, TOTAL, and SHBG) 10/27/2012 11887 ROUTINE VENIPUNCTURE 06/11/2013 56925 ASPIRATE/INJ GANGLION CYST 06/11/2013 78172 CBC 06/11/2013 [id number] GFR CALC (RESULT ONLY) 06/11/2013 29571 CMP 06/11/2013 03284 LIPID PANEL 06/11 77033 RA FACTOR 2013 23094 A1C (IN-HOUSE) 91977 REMOVAL OF NAIL BED 01/10/2014 Results Test Result Range Serum or plasma troponin i.cardiac measurement (mass/volume) - 09/01/16 18:05 Serum or plasma troponin i.cardiac measurement (mass/volume) < ng/mL <0.30 PT panel in platelet poor plasma by coagulation assay - 09/02/16 03:32 Prothrombin time (PT) in platelet poor plasma by coagulation assay 12.6 s 12.2-14.7 INR in platelet poor plasma or blood by coagulation assay 1.0 0.8-1.4 Activated partial thromboplastin time (aPTT) in platelet poor plasma bycoagulation assay - 09/02/16 03:32 Activated partial thromboplastin time (aPTT) in platelet poor plasma bycoagulation assay 31 s 24-35 Complete blood count (CBC) with automated white blood cell (WBC) differential - 09/02/16 03:32 Blood leukocytes automated count (number/volume) 5.3 10*3/ uL 4.3-11.0 Blood erythrocytes automated count (number/volume) 4.34 10*6 /uL 4.35-5.85 Venous blood hemoglobin measurement (mass/volume) 13.1 g/dL 13.3-17.7 Blood hematocrit (volume fraction) 40 % 40-54 Automated erythrocyte mean corpuscular volume 92 [foz_us] 80-99 Automated erythrocyte mean corpuscular hemoglobin (mass per erythrocyte) 30 pg 25-34 Automated erythrocyte mean corpuscular hemoglobin concentration measurement ( mass/volume) 33 g/dL 32-36 Automated erythrocyte distribution width ratio 13.7 % 10.0-14.5 Automated blood platelet count (count/volume) 154 10*3/uL 130-400 Automated blood platelet mean volume measurement 10.0 [foz_ us] 7.4-10.4 Automated blood neutrophils/100 leukocytes 35 % 42-75 Automated blood lymphocytes/100 leukocytes 52 % 12-44 Blood monocytes/100 leukocytes 9 % 0-12 Automated blood eosinophils/100 leukocytes 4 % 0-10 Automated blood basophils/100 leukocytes 1 % 0-10 Blood neutrophils automated count (number/volume) 1.9 10*3 1.8-7.8 Blood lymphocytes automated count (number/volume) 2.8 10*3 1.0-4.0 Blood monocytes automated count (number/volume) 0.5 10*3 0.0-1.0 Automated eosinophil count 0.2 10*3/uL 0.0-0.3 Automated blood basophil count (count/volume) 0.0 10*3/uL 0.0-0.1 Comprehensive metabolic panel - 09/02/16 03:32 Serum or plasma sodium measurement (moles/volume) 142 mmol/ L 135-145 Serum or plasma potassium measurement (moles/volume) 4.0 mmol/L 3.6-5.0 Serum or plasma chloride measurement (moles/volume) 108 mmol /L 98-107 Carbon dioxide 22 mmol/L 21-32 Serum or plasma anion gap determination (moles/volume) 12 mmol/L 5-14 Serum or plasma urea nitrogen measurement (mass/volume) 13 mg/dL 7-18 Serum or plasma creatinine measurement (mass/volume) 1.01 mg /dL 0.60-1.30 Serum or plasma urea nitrogen/creatinine mass ratio 13 0-20 Serum or plasma creatinine measurement with calculation of estimated glomerular filtration rate > NRG Serum or plasma glucose measurement (mass/volume) 90 mg/dL 70-105 Serum or plasma calcium measurement (mass/volume) 9.0 mg/dL 8.5-10.1 Serum or plasma total bilirubin measurement (mass/volume) 0.4 mg/dL 0.1-1.0 Serum or plasma alkaline phosphatase measurement (enzymatic activity/volume) 98 U/L 40-136 Serum or plasma aspartate aminotransferase measurement (enzymatic activity/ volume) 20 U/L 5-34 Serum or plasma alanine aminotransferase measurement (enzymatic activity/volume ) 20 U/L 0-55 Serum or plasma protein measurement (mass/volume) 6.3 g/dL 6.4-8.2 Serum or plasma albumin measurement (mass/volume) 3.8 g/dL 3.2-4.5 Magnesium - 09/02/16 03:32 Magnesium 2.2 mg/dL 1.8-2.4 Lipid 1996 panel - 09/02/16 03:32 Serum or plasma triglyceride measurement (mass/volume) 242 mg/dL <150 Serum or plasma cholesterol measurement (mass/volume) 240 mg /dL < 200 Serum or plasma cholesterol in HDL measurement (mass/volume) 34 mg/dL 40-60 Cholesterol in LDL [mass/volume] in serum or plasma by direct assay 172 mg/dL 1-129 Serum or plasma cholesterol in VLDL measurement (mass/volume) 48 mg/dL 5-40 THYROID STIMULATING HORMONE - 09/02/16 03:32 THYROID STIMULATING HORMONE 1.70 u[iU]/mL 0.35-4.94 Encounters ACCT No. Visit Date/Time Discharge Status Pt. Type Provider Facility Loc./Unit Complaint [id number] 09/01/2016 16:52:00 2016 16:50:00 DIS Inpatient GARCIA ESTEBAN FAC[facility]CEPCION FACP CCDS [facility] ICU CHEST PAIN [id number] 04/12/2013 11:46:00 2013 18:15:00 DIS Inpatient VIJAY SAMANIEGO DO [facility] CSD CHEST PAIN
--- OUTSIDE RECORDS SUMMARY | 2016-09-09 10:24 | XMS REPORT | Continuity of Care Document ---
Author Author [facility] Organization [facility] Address Unknown Phone Unavailable Allergies Active Description [...] 12/09/2010 WITT DDS DAVID 272.4 HYPERLIPIDEMIA 12/09/2010 WTIT DDS, DAVID 296.90 MOOD DISORDER 12/09/2010 ANASTASIIA [...] Procedures Code [place] [address] ROUTINE VENIPUNCTURE 06/15/2012 18720 CBC 06/15/2012 63431 LIPID PANEL 06/15 43544 CMP 06/15/2012 [id number] GFR CALC (RESULT ONLY) 06/15/2012 97826 ROUTINE VENIPUNCTURE 10/27/2012 37785 A1C (IN-HOUSE) 59314 PSA FREE AND TOTAL 10/27/2012 73957 TESTOSTERONE PANEL (FREE, TOTAL, and SHBG) 10/27/2012 02810 ROUTINE VENIPUNCTURE 06/11/2013 41075 ASPIRATE/INJ GANGLION CYST 06/11/2013 73957 CBC 06/11/2013 [id number] GFR CALC (RESULT ONLY) 06/11/2013 18801 CMP 06/11/2013 52375 LIPID PANEL 06/11 38819 RA FACTOR 2013 60665 A1C (IN-HOUSE) 44667 REMOVAL OF NAIL BED 01/10/2014 Results Test [...] Status Pt. Type Provider Facility Loc./Unit Complaint [id number] 09/01/2016 16:52:00 2016 16:50:00 DIS Outpatient GARCIA ESTEBAN FACCCONCEPCION FACP CCDS [facility] SDC CHEST PAIN [id number] 04/12/2013 11:46:00 2013 18:15:00 DIS Inpatient VIJAY SAMANIEGO DO [facility] CSD CHEST PAIN
== END 2016-09-02 16:50 | disposition home or self-care (01) ==
LOC: ICU 16:52 → UNDOADMOB 16:52 → ICU 16:52 → SDC 16:52 → ENPENDDIS 09-02 16:30 → UNDODISOB 09-02 16:50 → SDC 09-02 16:50
PROVIDERS: ATTEND Internal Medicine Cardiovascular Disease
DX: R07.89 Other chest pain (principal); R06.09 Other forms of dyspnea; I10 Essential (primary) hypertension; E78.5 Hyperlipidemia, unspecified; F41.8 Other specified anxiety disorders; Z79.84 Long term (current) use of oral hypoglycemic drugs; Z82.49 Family history of ischemic heart disease and other diseases of the circulatory system; Z87.891 Personal history of nicotine dependence; Z79.899 Other long term (current) drug therapy
CPT/HCPCS: 36221; 36415; 71020; 80053; 80061; 83735; 84443; 84484; 85025; 85610; 85730; 93005; 93306; 93458

== ENCOUNTER 2016-11-17 19:15 | Emergency (ER) | payer SELFPAY ==
[~2016-11-17] VITALS: Ht 177.8 cm; Wt 95.3 kg
[~2016-11-17 19:15] MED LIST changes: +ALPR0.5T PO; +BUPR-42 PO; +FLUO20CA42 PO; +LISI-556 PO; +METF500T4 PO; +METO-333 PO; +PSYL174P2 PO
[2016-11-17] MEDS ORDERED: TETANUS,DIPTH,PERTUSS P/F (BOOSTRIX) 0.5 ML VIAL IM ONE (19:30)
[2016-11-17] MEDS ORDERED: AUGMENTIN 875 MG TAB (AMOXICILLIN/CLAVULANATE) PO SCH (19:30)
[2016-11-17] MEDS ORDERED: AMOX-358 PO (19:33)
--- NOTE | 2016-11-17 19:33 | ED Upper Extremity ---
General Chief Complaint: Bite-Animal/Human/Insect Stated Complaint: RT HAND DOG BITE Source: patient Exam Limitations: no limitations History of Present Illness Time seen by provider: 19:31 Initial Comments Neighbor's dog bit the palm of his right hand 30 meds prior to arrival. He is not up-to-date on his tetanus. The dog is up-to-date on rabies vaccine. Onset: just prior to arrival Severity: moderate Pain/Injury Location: right hand Method of Injury: unknown Allergies and Home Medications Allergies Coded Allergies: NKANo Known Allergies (Verified Allergy, Unknown, 09/01/05) Home Medications Alprazolam 0.5 Mg Tablet, 0.5 MG PO TID, (Reported) Aspirin 81 Mg Tablet.dr, 81 MG PO DAILY, (Reported) Bupropion HCl 150 Mg Tab.er.24h, 150 MG PO BID, (Reported) LAST FILLED 07/08/16 #60 Fluoxetine HCl 20 Mg Capsule, 20 MG PO DAILY, (Reported) Lisinopril 5 Mg Tablet, 5 MG PO DAILY, (Reported) LAST FILLED 07/08/16 #30 Lovastatin 40 Mg Tablet, 40 MG PO DAILY, (Reported) LAST FILLED 07/08/16 #30 Metoprolol Tartrate 25 Mg Tablet, 25 MG PO BID, (Reported) LAST FILLED 07/08/16 #60 Multivitamin 1 Each Tablet, 1 TAB PO DAILY, (Reported) [place] 3 Polyunsat Fatty Acids 1,000 Mg Cap, 1,000 MG PO DAILY, (Reported) Psyllium Husk/Aspartame 174 Gm Powder, 1 TSP PO BID, (Reported) Rabeprazole Sodium 20 Mg Tablet.dr, 20 MG PO DAILY for 30 Days Prescribed by: VIJAY SAMANIEGO on 04/13/13 8288 Constitutional: see HPI EENTM: see HPI Respiratory: no symptoms reported Cardiovascular: no symptoms reported Genitourinary: no symptoms reported Musculoskeletal: no symptoms reported Skin: see HPI Psychiatric/Neurological: No Symptoms Reported Past Ockeytd-Tjxjox-Ukffnl Hx Patient Social History Alcohol Use: Denies Use Recreational Drug Use: No Smoking Status: Never a Smoker Recent Foreign Travel: No Contact w/Someone Who Travel: No Recent Hopitalizations: No Physical Abuse: No Sexual Abuse: No Mistreated: No Fear: No Immunizations Up To Date Tetanus Booster (TDap): More than 5yrs Surgeries History of Surgeries: Yes (shoulder and elbow) Respiratory History of Respiratory Disorde: Yes Respiratory Disorders: Sleep Apnea Cardiovascular History of Cardiac Disorders: Yes Neurological History of Neurological Disord: Yes Reproductive System Hx Reproductive Disorders: No Sexually Transmitted Disease: No HIV/AIDS: No Genitourinary History of Genitourinary Disor: No Gastrointestinal History of Gastrointestinal Di: Yes (thickening of stomach wall) Gastrointestinal Disorders: Gastroesophageal Reflux, Ulcer Musculoskeletal History of Musculoskeletal Dis: Yes (uses cane) Musculoskeletal Disorders: Degenerate Disk Disease, Arthritis, Chronic Back Pain Endocrine History of Endocrine Disorders: Yes (pre diabetes ) HEENT Hearing Impairment: Hard of Hearing Cancer History of Cancer: No Psychosocial History of Psychiatric Problem: Yes Behavioral Health Disorders: Sleep Difficulties, Anxiety, Depression Suicide Risk Score: 0 Integumentary History of Skin or Integumenta: No Blood Transfusions History of Blood Disorders: No Physical Exam Vital Signs Capillary Refill : General Appearance: WD/WN, no apparent distress HEENT: PERRL/EOMI, normal ENT inspection Neck: non-tender, full range of motion Respiratory: no respiratory distress, no accessory muscle use Gastrointestinal: normal bowel sounds, non tender, soft Shoulder: normal inspection, non-tender Elbow/Forearm: normal inspection, non-tender Wrist: Yes normal inspection, Yes non-tender Hand: Right (small puncture wound to palm of right hand. ) Neurologic/Psychiatric: alert, normal mood/affect, oriented x 3 Skin: normal color, warm/dry Progress/Results/Core Measures Results/Orders My Orders Orders - MAIRA GUAJARDO APRN Dipht,Pertuss(Acell),Tet Adult (Boostrix (11/17/16 19:30) Amoxicillin/Clavulanate Tablet (Augmenti (11/17/16 19:30) Departure Impression Impression: Primary Impression: Dog bite Disposition: 01 HOME, SELF-CARE Condition: Stable Departure-Patient Inst. Decision time for Depature: 19:32 Referrals: [facility] (PCP/Family) Primary Care Physician Patient Instructions: Animal Bites (DC) Add. Discharge Instructions: 1. Antibiotics as directed 2. Return to ER for any concerns 3. If you find out the dog is not up-to-date on rabies vaccines return to the emergency room. All discharge instructions reviewed with patient and/or family. Voiced understanding. Scripts Amoxicillin/Potassium Clav (Augmentin 875-125 Tablet) 1 Each Tablet 1 EACH PO BID, #10 TAB Prov: MAIRA GUAJARDO APRN 11/17/16 MAIRA GUAJARDO APRN Nov 17, 2016 19:33
[2016-11-17 19:59] VITALS: BP 131/98
== END 2016-11-17 19:59 | disposition home or self-care (01) ==
LOC: EDUNIT# 19:15 → ER 19:17
DX: S61.451A Open bite of right hand, initial encounter (principal); G47.30 Sleep apnea, unspecified; K21.9 Gastro-esophageal reflux disease without esophagitis; M19.90 Unspecified osteoarthritis, unspecified site; F41.9 Anxiety disorder, unspecified; F32.9 Major depressive disorder, single episode, unspecified; Z23 Encounter for immunization; Z87.19 Personal history of other diseases of the digestive system; Z79.82 Long term (current) use of aspirin; W54.0XXA Bitten by dog, initial encounter
CPT/HCPCS: 90471; 90715; 99284

== ENCOUNTER 2019-02-02 22:31 | Emergency (ER) | payer SELFPAY ==
[~2019-02-02] VITALS: Ht 175 cm; Wt 84.0 kg
[~2019-02-02 22:31] MED LIST changes: +AMOX-358 PO; +METF-397 PO; -METF500T4 PO
[2019-02-02] MEDS ORDERED: HYDROcodone/APAP 5 MG/325 MG (LORTAB) TAB PO ONE (23:15)
[2019-02-03] MEDS ORDERED: ACHD5005 PO (00:42)
--- NOTE | 2019-02-03 00:43 | ED Fall/Injury ---
General Chief Complaint: Upper Extremity Stated Complaint: R ARM PAIN Nursing Triage Note: Pt to [facility] 6 with c/o right arm pain after tripping over his dog approx 2215. Pt denies hitting his head or any LOC. Source: patient Exam Limitations: no limitations History of Present Illness Date Seen by Provider: Feb 02, 2019 Time Seen by Provider: 23:01 Initial Comments This 58-year-old gentleman presents to the emergency room with right shoulder pain after tripping on his dog and falling. He struck his shoulder directly on the floor. He denies any head or neck injury. There was no loss of consciousness. Incident happened just prior to arrival. Occurred: just prior to arrival Severity: moderate Injuries/Pain Location: upper extremity Context: tripped Loss of Consciousness: no loss of consciousness Associated Symptoms (Fall): Denies Symptoms Allergies and Home Medications Allergies Coded Allergies: NKANo Known Allergies (Verified Allergy, Unknown, 09/01/05) Home Medications Alprazolam 0.5 Mg Tablet, 0.5 MG PO TID, (Reported) Amoxicillin/Potassium Clav 1 Each Tablet, 1 EACH PO BID Prescribed by: MAIRA GUAJARDO on 11/17/16 193 Aspirin 81 Mg Tablet.dr, 81 MG PO DAILY, (Reported) Bupropion HCl 150 Mg Tab.er.24h, 150 MG PO BID, (Reported) LAST FILLED 07/08/16 #60 Fluoxetine HCl 20 Mg Capsule, 20 MG PO DAILY, (Reported) Hydrocodone Bit/Acetaminophen 1 Tab Tab, 1-2 EACH PO Q6H PRN for PAIN-MODERATE Prescribed by: GHISLAINE TEJEDA on 02/03/19 0042 Lisinopril 5 Mg Tablet, 5 MG PO DAILY, (Reported) LAST FILLED 07/08/16 #30 Lovastatin 40 Mg Tablet, 40 MG PO DAILY, (Reported) LAST FILLED 07/08/16 #30 Metoprolol Tartrate 25 Mg Tablet, 25 MG PO BID, (Reported) LAST FILLED 07/08/16 #60 Multivitamin 1 Each Tablet, 1 TAB PO DAILY, (Reported) [place] 3 Polyunsat Fatty Acids 1,000 Mg Cap, 1,000 MG PO DAILY, (Reported) Psyllium Husk/Aspartame 174 Gm Powder, 1 TSP PO BID, (Reported) Rabeprazole Sodium 20 Mg Tablet., 20 MG PO DAILY Prescribed by: VIJAY SAMANIEGO on 04/13/13 4318 Patient Home Medication List Home Medication List Reviewed: Yes Review of Systems Review of Systems Constitutional: no symptoms reported Eyes: No Symptoms Reported Ears, Nose, Mouth, Throat: no symptoms reported Respiratory: no symptoms reported Cardiovascular: no symptoms reported Gastrointestinal: no symptoms reported Genitourinary: no symptoms reported Musculoskeletal: see HPI Skin: no symptoms reported Psychiatric/Neurological: No Symptoms Reported Past Orokxbb-Gejfco-Dtxioi Hx Past Med/Social Hx: Reviewed and Corrections made Patient Social History Alcohol Use: Denies Use Recreational Drug Use: No Smoking Status: Never a Smoker Recent Foreign Travel: No Contact w/Someone Who Travel: No Recent Infectious Disease Expo: No Recent Hopitalizations: No Physical Abuse: No Sexual Abuse: No Mistreated: No Fear: No Immunizations Up To Date Tetanus Booster (TDap): More than 5yrs Past Medical History Surgeries: Yes (shoulder and elbow) Respiratory: Yes Sleep Apnea Cardiac: Yes Hypertension Neurological: Yes Reproductive Disorders: No Sexually Transmitted Disease: No HIV/AIDS: No Genitourinary: No Gastrointestinal: Yes (thickening of stomach wall) Gastroesophageal Reflux, Ulcer Musculoskeletal: Yes (uses cane) Degenerate Disk Disease, Arthritis, Chronic Back Pain Endocrine: Yes (pre diabetes ) Hearing Impairment: Hard of Hearing Cancer: No Psychosocial: Yes Sleep Difficulties, Anxiety, Depression Integumentary: No Blood Disorders: No Physical Exam Vital Signs Vital Signs - First Documented 02/02/19 22:40 Temp 36.7 Pulse 75 Resp 20 B/P (MAP) 149/87 (107) Pulse Ox 99 O2 Delivery Room Air Capillary Refill : Less Than 3 Seconds Height, Weight, BMI Height: 5'10.00" Weight: 210lbs. 0.0oz. 95.396872kg; 27.00 BMI Method:Stated General Appearance: WD/WN, mild distress HEENT: PERRL/EOMI, normal ENT inspection Neck: non-tender, normal inspection Cardiovascular: regular rate, rhythm, no edema, no murmur Respiratory: lungs clear, normal breath sounds, no respiratory distress Peripheral Pulses: 2+ Radial Pulses (R) Extremities: other (tenderness to palpation over the right shoulder and pain with any movement. Distal upper arm, elbow, forearm, and hand all normal to inspection. Radial pulse intact. Sensation and capillary refill intact in the fingers. 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, no motor/sensory deficits, alert, normal mood/affect, oriented x 3 Skin: normal color, warm/dry Neelam Coma Score Best Eye Response: (4) Open Spontaneously Best Verbal Response: (5) Oriented Best Motor Response: (6) Obeys Commands [place] Total: 15 Progress/Results/Core Measures Results/Orders My Orders Orders - GHISLAINE BELTRAN MD Hydrocodone/Apap 5/325 Tablet (Lortab 5 (02/02/19 23:15) Shoulder, Right, 3 Views (02/02/19 23:28) Ct Extremity Upper Right Wo (02/02/19 23:38) Medications Given in ED Current Medications Medications Dose Ordered Sig/Reny Route Start Time Stop Time Status Last Admin Dose Admin Acetaminophen/ Hydrocodone Bitart 1 tab ONCE ONCE PO 02/02/19 23:15 02/02/19 23:16 DC 02/02/19 23:11 1 TAB Vital Signs/I&O 02/02/19 02/03/19 22:40 00:51 Temp 36.7 36.7 Pulse 75 75 Resp 20 20 B/P (MAP) 149/87 (107) 149/87 (107) Pulse Ox 99 99 O2 Delivery Room Air Room Air Blood Pressure Mean: 107 POS Progress Progress Note : Progress Note Shoulder x-ray showed some subtle areas of suspicion on the articular edge of the scapula. In context of patient's significant pain, CT scan of the shoulder was pursued. CT likewise revealed an area suspicious for nondisplaced fracture. This was not initially interpreted by the radiologist but was acknowledged as a possibility after further discussion in context of the clinical presentation. Patient was treated with hydrocodone and placed in a sling. Patient was advised to follow-up with an orthopedic surgeon as soon as possible. If he is found to not have a true fracture, he may need evaluation for rotator cuff injury. Diagnostic Imaging Diagonstic Imaging: Xray Plain Films/CT/US/NM/MRI: other (right shoulder) Comments Right shoulder x-ray viewed by me. Report not yet available. There is an area of questionable disruption along the articular edge of the scapula. Fracture is questioned. Diagonstic Imaging: CT Plain Films/CT/US/NM/MRI: other (right shoulder) Comments CT of the right shoulder viewed by me and [facility] report reviewed. Discussed with the [facility] radiologist. There is an area of questionable fracture in the body of the scapula. Departure Impression Primary Impression: Right scapula fracture Qualified Codes: S42.101A - Fracture of unspecified part of scapula, right shoulder, initial encounter for closed fracture Additional Impression: Fall on same level Qualified Codes: W18.30XA - Fall on same level, unspecified, initial encounter Disposition: 01 HOME, SELF-CARE Condition: Improved Departure-Patient Inst. Referrals: [facility] [place] ([place]) Primary Care Physician ANASTASIIA QUIÑONEZ (Family) Primary Care Physician AZALEA SIMMONS MD, MICHAEL P MD Patient Instructions: How to Use a Shoulder Sling, Shoulder Fracture Add. Discharge Instructions: Follow-up with an orthopedic provider as soon as possible. Use your pain medication as prescribed. You may wish to use a stool softener such as Colace while you take hydrocodone to prevent constipation. You may ice your shoulder in 20 minute intervals to help reduce pain and swelling. Use the sling for immobilization is much as possible. Return to care if you have any new or worsening problems. All discharge instructions reviewed with patient and/or family. Voiced understanding. Scripts Hydrocodone Bit/Acetaminophen (Hydrocodone/Acetaminophen 5/325mg Tablet) 1 Tab Tab 1-2 EACH PO Q6H PRN for PAIN-MODERATE MDD 10, #30 TAB 0 Refills Prov: GHISLAINE BELTRAN MD 02/03/19 GHISLAINE BELTRAN MD Feb 03, 2019 00:43 POS
[2019-02-03 00:51] VITALS: BP 149/87
--- NOTE | 2019-02-03 07:37 | Diagnostic Imaging Report ---
PROCEDURE: CT right upper extremity without contrast. TECHNIQUE: Multiple contiguous axial images were obtained through the right upper extremity without the use of intravenous contrast. Sagittal and coronal reformations were then performed. Auto Exposure Controls were utilized during the CT exam to meet ALARA standards for radiation dose reduction. INDICATION: Fall and right shoulder pain. Glenohumeral and acromioclavicular alignment appear to be normal. Distal clavicle appears to be intact. The scapula and proximal humerus are intact. No fractures are seen. IMPRESSION: No acute bony abnormality is detected. Dictated by: Dictated on workstation # [id number]
--- NOTE | 2019-02-03 07:54 | Diagnostic Imaging Report ---
PATIENT HISTORY: Fall, right shoulder pain. TECHNIQUE: 3 views of the right shoulder COMPARISON: None FINDINGS: No acute fracture or dislocation is seen in the right shoulder. Alignment appears normal. There are mild degenerative changes in the acromioclavicular joint. IMPRESSION: Mild degenerative changes in the right acromioclavicular joint with no acute osseous abnormality seen in the right shoulder. Dictated by: Dictated on workstation # [id number]
== END 2019-02-03 00:50 | disposition home or self-care (01) ==
LOC: EDUNIT# 22:31 → ER 22:32
DX: S42.101A Fracture of unspecified part of scapula, right shoulder, initial encounter for closed fracture (principal); I10 Essential (primary) hypertension; K21.9 Gastro-esophageal reflux disease without esophagitis; F41.9 Anxiety disorder, unspecified; F32.9 Major depressive disorder, single episode, unspecified; R40.2142 Coma scale, eyes open, spontaneous, at arrival to emergency department; R40.2252 Coma scale, best verbal response, oriented, at arrival to emergency department; R40.2362 Coma scale, best motor response, obeys commands, at arrival to emergency department; Z79.82 Long term (current) use of aspirin; W01.0XXA Fall on same level from slipping, tripping and stumbling without subsequent striking against object, initial encounter
CPT/HCPCS: 73030; 73200

== ENCOUNTER 2020-12-09 17:53 | Emergency (ER) | payer OTHER ==
[~2020-12-09] VITALS: Ht 177.8 cm; Wt 95.0 kg
[~2020-12-09 17:53] MED LIST changes: +ACHD5005 PO; -LISI-556 PO; +LISI-729 PO
--- NOTE | 2020-12-09 18:07 | ED Chest Pain ---
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 He states that he had a heart attack years ago but does not have any stents though he did used to have a bottle of nitroglycerin that he kept with him. He does not smoke. He states that he was formerly on Metformin for diabetes. Also states that he is on medication for hyperlipidemia. He has a family history of premature coronary disease with reports that his mother when she was about 60 of a heart attack. Timing/Duration: 1-3 hours Severity/Quality: moderate Location: central Radiation: no radiation Activities at Onset: none ASA po SENIOR ACCOUNTING ANALYST: No NTG SL SENIOR ACCOUNTING ANALYST: No Associated Symptoms: nausea/vomiting (MAIRA GUAJARDO APRN) Allergies and Home Medications Allergies Coded Allergies: NKANo Known Allergies (Verified Allergy, Unknown, 09/01/05) Patient Home Medication List Home Medication List Reviewed: Yes (MAIRA GUAJARDO APRN) Alprazolam (Xanax) 0.5 Mg Tablet, 0.5 MG PO TID, (Reported) Entered as Reported by: ELENO FRANCO on 09/01/161956 Amoxicillin/Potassium Clav (Augmentin 875-125 Tablet) 1 Each Tablet, 1 EACH PO BID Prescribed by: MAIRA GUAJARDO on 11/17/161932 Aspirin (Aspir 81) 81 Mg Tablet.dr, 81 MG PO DAILY, (Reported) Entered as Reported by: SUSANNAH DAVIS on 04/12/13 104 Bupropion HCl (Wellbutrin Xl) 150 Mg Tab.er.24h, 150 MG PO BID, (Reported) Entered as Reported by: ELENO FRANCO on 09/01/161956 Fluoxetine HCl (Prozac) 20 Mg Capsule, 20 MG PO DAILY, (Reported) Entered as Reported by: ELENO FRANCO on 09/01/161956 Hydrocodone Bit/Acetaminophen (Lortab 5 Mg Tablet) 1 Tab Tab, 1-2 EACH PO Q6H PRN for PAIN-MODERATE Prescribed by: GHISLAINE TEJEDA on 02/03/19 0042 Lisinopril (Lisinopril) 5 Mg Tablet, 5 MG PO DAILY, (Reported) Entered as Reported by: ELENO FRANCO on 09/01/161956 Lovastatin (Lovastatin) 40 Mg Tablet, 40 MG PO DAILY, (Reported) Entered as Reported by: YASHIRA SHEN on 09/02/16 1108 Metoprolol Tartrate (Metoprolol Tartrate) 25 Mg Tablet, 25 MG PO BID, (Reported) Entered as Reported by: ELENO FRANCO on 09/01/161956 Multivitamin (Multi Vitamin Daily) 1 Each Tablet, 1 TAB PO DAILY, (Reported) Entered as Reported by: MERLIN DELGADO on 04/12/13 1238 [place] 3 Polyunsat Fatty Acids (Fish Oil) 1,000 Mg Cap, 1,000 MG PO DAILY, (Reported) Entered as Reported by: SUSANNAH DAVIS on 04/12/13 1041 Psyllium Husk/Aspartame (Metamucil Powder) 174 Gm Powder, 1 TSP PO BID, (Reported) Entered as Reported by: YASHIRA SHEN on 09/02/16 110 Rabeprazole Sodium (Aciphex) 20 Mg Tablet.dr, 20 MG PO DAILY Prescribed by: VIJAY SAMANIEGO on 04/13/13 4938 Review of Systems Review of Systems Constitutional: see HPI EENTM: No Symptoms Reported Respiratory: No Symptoms Reported Cardiovascular: See HPI, Chest Pain Gastrointestinal: No Symptoms Reported Genitourinary: No Symptoms Reported Musculoskeletal: no symptoms reported Skin: no symptoms reported Psychiatric/Neurological: No Symptoms Reported Endocrine: No Symptoms Reported Hematologic/Lymphatic: No Symptoms Reported (MAIRA GUAJARDO APRN) Past Fpihcoz-Qfabfo-Ylcgwf Hx Immunizations Up To Date Tetanus Booster (TDap): More than 5yrs (MAIRA GUAJARDO APRN) Past Medical History Surgeries: Yes (shoulder and elbow) Respiratory: Yes Sleep Apnea Cardiac: Yes Hypertension Neurological: Yes Reproductive Disorders: No Sexually Transmitted Disease: No HIV/AIDS: No Genitourinary: No Gastrointestinal: Yes (thickening of stomach wall) Gastroesophageal Reflux, Ulcer Musculoskeletal: Yes (uses cane) Degenerate Disk Disease, Arthritis, Chronic Back Pain Endocrine: Yes (pre diabetes ) Hearing Impairment: Hard of Hearing Cancer: No Psychosocial: Yes Sleep Difficulties, Anxiety, Depression Integumentary: No Blood Disorders: No (MAIRA GUAJARDO APRN) Physical Exam Vital Signs Vital Signs - First Documented 12/09/20 17:55 Temp 36.5 Pulse 95 Resp 20 B/P (MAP) 140/93 (109) Pulse Ox 99 O2 Delivery Room Air (PATRICA CALVO DO) Vital Signs Capillary Refill : (MAIRA GUAJARDO APRN) Height, Weight, BMI Height: 5'10.00" Weight: 210lbs. 0.0oz. 95.886818fu; 27.00 BMI Method:Stated General Appearance: No Apparent Distress, WD/WN HEENT: PERRL/EOMI, TMs Normal Neck: Full Range of Motion, Normal Inspection Respiratory: Normal Breath Sounds, No Accessory Muscle Use, No Respiratory Distress Cardiovascular: Regular Rate, Rhythm, Normal Peripheral Pulses Gastrointestinal: Non Tender, Soft Extremity: Normal Capillary Refill, Normal Inspection Neurologic/Psychiatric: Alert, Oriented x3 Skin: Normal Color, Warm/Dry (MAIRA GUAJARDO APRN) Progress/Results/Core Measures Results/Orders Lab Results Laboratory Tests Test 12/09/20 18:00 12/09/20 20:07 Range/Units White Blood Count 9.7 4.3-11.0 10^3/uL Red Blood Count 5.33 4.30-5.52 10^6/uL Hemoglobin 16.0 13.3-17.7 g/dL Hematocrit 49 40-54 % Mean Corpuscular Volume 91 80-99 fL Mean Corpuscular Hemoglobin 30 25-34 pg Mean Corpuscular Hemoglobin Concent 33 32-36 g/dL Red Cell Distribution Width 13.3 10.0-14.5 % Platelet Count 230 130-400 10^3/uL Mean Platelet Volume 9.2 9.0-12.2 fL Immature Granulocyte % (Auto) 0 % Neutrophils (%) (Auto) 48 42-75 % Lymphocytes (%) (Auto) 43 12-44 % Monocytes (%) (Auto) 7 0-12 % Eosinophils (%) (Auto) 1 0-10 % Basophils (%) (Auto) 1 0-10 % Neutrophils # (Auto) 4.6 1.8-7.8 10^3/uL Lymphocytes # (Auto) 4.2 H 1.0-4.0 10^3/uL Monocytes # (Auto) 0.7 0.0-1.0 10^3/uL Eosinophils # (Auto) 0.1 0.0-0.3 10^3/uL Basophils # (Auto) 0.1 0.0-0.1 10^3/uL Immature Granulocyte # (Auto) 0.0 0.0-0.1 10^3/uL Prothrombin Time 12.8 12.2-14.7 SEC INR Comment 0.9 0.8-1.4 Activated Partial Thromboplast Time 28 24-35 SEC D-Dimer 0.54 H 0.00-0.49 UG/ML Sodium Level 139 135-145 MMOL/L Potassium Level 4.7 3.6-5.0 MMOL/L Chloride Level 105 98-107 MMOL/L Carbon Dioxide Level 19 L 21-32 MMOL/L Anion Gap 15 H 5-14 MMOL/L Blood Urea Nitrogen 19 H 7-18 MG/DL Creatinine 1.73 H 0.60-1.30 MG/DL Estimat Glomerular Filtration Rate 41 BUN/Creatinine Ratio 11 Glucose Level 95 70-105 MG/DL Calcium Level 10.1 8.5-10.1 MG/DL Corrected Calcium 8.5-10.1 MG/DL Magnesium Level 2.1 1.6-2.4 MG/DL Total Bilirubin 0.5 0.1-1.0 MG/DL Aspartate Amino Transf (AST/SGOT) 21 5-34 U/L Alanine Aminotransferase (ALT/SGPT) 27 0-55 U/L Alkaline Phosphatase 95 40-136 U/L Myoglobin 255.8 H 10.0-92.0 NG/ML Troponin I < 0.028 < 0.028 <0.028 NG/ML B-Type Natriuretic Peptide < 10.0 <100.0 PG/ML Total Protein 8.3 H 6.4-8.2 GM/DL Albumin 4.6 H 3.2-4.5 GM/DL (PATRICA CALVO DO) Vital Signs/I&O 12/09/20 12/09/20 17:55 21:22 Temp 36.5 Pulse 95 84 Resp 20 12 B/P (MAP) 140/93 (109) 135/78 Pulse Ox 99 96 O2 Delivery Room Air Room Air (PATRICA CALVO DO) Departure Communication (Admissions) His EKG shows a rate of [address] there are no ST segment changes nor is there any ectopy (MAIRA GUAJARDO APRN) Impression Primary Impression: Chest pain Disposition: 01 HOME, SELF-CARE Condition: Stable Departure-Patient Inst. Decision time for Depature: 20:48 (MAIRA GUAJARDO APRN) [facility]: [facility] [place]) Primary Care Physician ANASTASIIA QUIÑONEZ (Family) Primary Care Physician CONCEPCION ZELAYA [facility] GARCIA ALBERT MD, DAVID L JR, MD Patient Instructions: Chest Pain, Adult ED Add. Discharge Instructions: 1. Return to ER for any concerns 2. Call the electrical assembly supervisor of your choosing tomorrow to make an appointment to be seen for further evaluation. Work/School Note: Work Release Form Date Seen in the Emergency Department: Dec 09, 2020 Return to Work: Dec 10, 2020 ATTENDING PHYSICIAN NOTE: I WAS PHYSICALLY PRESENT ER PHYSICIAN WHEN THIS PATIENT WAS IN ER, BUT I WAS NOT INVOLVED IN DECISION MAKING OR ANY CARE OF THIS PATIENT. (PATRICA CALVO DO) MAIRA GUAJARDO APRN Dec 09, 2020 18:07 PATRICA CALVO DO Dec 11, 2020 06:36
[2020-12-09 18:14] LABS: BASOPHILS # (AUTO) 0.1 10^3/uL (0.0-0.1); BASOPHILS % (AUTO) 1 % (0-10); EOSINOPHILS # (AUTO) 0.1 10^3/uL (0.0-0.3); EOSINOPHILS % (AUTO) 1 % (0-10); HEMATOCRIT 49 % (40-54); LYMPHOCYTES # (AUTO) 4.2 10^3/uL (1.0-4.0); LYMPHOCYTES % (AUTO) 43 % (12-44); MEAN CORPUSCULAR HEMOGLOBIN 30 pg (25-34); MEAN CORPUSCULAR HGB CONC 33 g/dL (32-36); MEAN CORPUSCULAR VOLUME 91 fL (80-99); MEAN PLATELET VOLUME 9.2 fL (9.0-12.2); MONOCYTES # (AUTO) 0.7 10^3/uL (0.0-1.0); MONOCYTES % (AUTO) 7 % (0-12); NEUTROPHILS # (AUTO) 4.6 10^3/uL (1.8-7.8); NEUTROPHILS % (AUTO) 48 % (42-75); PLATELET COUNT 230 10^3/uL (130-400); WHITE BLOOD COUNT 9.7 10^3/uL (4.3-11.0)
[2020-12-09] MEDS ORDERED: LIDOCAINE 2% VISCOUS 15 ML UDC PO ONE (18:15)
[2020-12-09] MEDS ORDERED: NITROGLYCERIN 0.4 MG SL TABS BTL 25'S SL PRN (18:15)
[2020-12-09] MEDS ORDERED: ANTACID SUSP 30 ML UDC (MYLANTA) PO ONE (18:15)
[2020-12-09] MEDS ORDERED: ASPIRIN 81 MG CHEW (CHILDREN'S ASA) PO ONE (18:15)
[2020-12-09 18:25] LABS: ALBUMIN 4.6 GM/DL (3.2-4.5); CHLORIDE 105 MMOL/L (98-107); POTASSIUM 4.7 MMOL/L (3.6-5.0); SODIUM 139 MMOL/L (135-145)
[2020-12-09 18:26] LABS: CALCIUM 10.1 MG/DL (8.5-10.1)
[2020-12-09 18:27] LABS: GLUCOSE 95 MG/DL (70-105); INR 0.9 (0.8-1.4); PROTHROMBIN TIME PATIENT 12.8 SEC (12.2-14.7); TOTAL PROTEIN 8.3 GM/DL (6.4-8.2)
[2020-12-09 18:28] LABS: CARBON DIOXIDE 19 MMOL/L (21-32)
[2020-12-09 18:29] LABS: BILIRUBIN,TOTAL 0.5 MG/DL (0.1-1.0)
[2020-12-09 18:31] LABS: ALKALINE PHOSPHATASE 95 U/L (40-136); CREATININE SERUM 1.73 MG/DL (0.60-1.30); GFR ESTIMATED 41
[2020-12-09 18:32] LABS: BUN/CREATININE RATIO 11
[2020-12-09 18:34] LABS: ALANINE AMINOTRANSFERASE 27 U/L (0-55); MAGNESIUM 2.1 MG/DL (1.6-2.4)
[2020-12-09] MEDS ORDERED: LACTATED RINGERS 1,000 ML IV SCH (18:45)
--- NOTE | 2020-12-09 19:07 | Diagnostic Imaging Report ---
INDICATION: Chest pain AP view of the chest is obtained with comparison made to study of 04/12/2013. Heart size and pulmonary vascularity are within normal limits. There is air trapping, bilaterally. No pneumothorax or consolidation is identified and there is no significant pleural fluid. IMPRESSION: Probable emphysema without acute abnormality detected. Dictated by: Dictated on workstation # [id number]
[2020-12-09] MEDS ORDERED: ACETAMINOPHEN 500 MG TAB (TYLENOL) PO ONE (19:15)
[2020-12-09 21:22] VITALS: BP 135/78
== END 2020-12-09 21:22 | disposition home or self-care (01) ==
LOC: EDUNIT# 17:53 → ER 17:55
DX: R07.9 Chest pain, unspecified (principal); G47.30 Sleep apnea, unspecified; I10 Essential (primary) hypertension; E78.00 Pure hypercholesterolemia, unspecified; F41.9 Anxiety disorder, unspecified; F32.9 Major depressive disorder, single episode, unspecified; I25.2 Old myocardial infarction; K21.9 Gastro-esophageal reflux disease without esophagitis; E11.9 Type 2 diabetes mellitus without complications; G89.29 Other chronic pain; M54.9 Dorsalgia, unspecified; Z79.82 Long term (current) use of aspirin; Z79.899 Other long term (current) drug therapy; Z79.891 Long term (current) use of opiate analgesic; Z79.84 Long term (current) use of oral hypoglycemic drugs
CPT/HCPCS: 36415; 71045; 80053; 83735; 83874; 83880; 84484; 85025; 85379; 85610; 85730; 93005; 93041

== ENCOUNTER 2021-07-02 07:52 | Outpatient (CLI) | payer OTHER ==
[~2021-07-02] VITALS: Ht 177.8 cm; Wt 98.9 kg
[~2021-07-02 07:52] MED LIST changes: -LISI-729 PO; +LISI5TAB20 PO
[2021-07-07] MEDS ORDERED: MELO15TA14 PO (14:29)
[2021-07-07] MEDS ORDERED: ATOR40TA PO (14:29)
[2021-07-07] MEDS ORDERED: RT-ALBUINH IH (14:29)
[2021-07-07] MEDS ORDERED: METO-351 PO (14:29)
[2021-07-07] MEDS ORDERED: TADA5TAB13 PO (14:29)
[2021-07-07] MEDS ORDERED: PANT40TA52 PO (14:29)
== END 2021-07-07 14:35 | disposition home or self-care (01) ==
LOC: PREOP 07:52
PROVIDERS: ATTEND Surgery
DX: Z01.818 Encounter for other preprocedural examination (principal)

== ENCOUNTER 2021-07-13 11:04 | Day surgery (SDC) | payer OTHER ==
[2021-07-13] VITALS (7 sets, daily range): BP systolic 101–125; BP diastolic 67–89
[~2021-07-13] VITALS: Ht 178 cm; Wt 98.9 kg
[~2021-07-13 11:04] MED LIST changes: +ATOR40TA PO; +MELO15TA14 PO; +METO-351 PO; +PANT40TA52 PO; +RT-ALBUINH IH; +TADA5TAB13 PO
[2021-07-13] MEDS ORDERED: LACTATED RINGERS 1,000 ML IV ONE (11:11)
[2021-07-13] MEDS ORDERED: LACTATED RINGERS 1,000 ML IV STA (11:21)
--- NOTE | 2021-07-13 11:28 | Progress Note-Pre Operative ---
Pre-Operative Progress Note H&P Reviewed The H&P was reviewed, patient examined and no changes noted. Time Seen by Provider: 11: Date H&P Reviewed: Jul 13, 2021 Time H&P Reviewed: : Pre-Operative Diagnosis: Rectal bleed, hx of polyps, chronic gastritis ALEXANDER IVERSON DO Jul 13, 2021 11:28
[2021-07-13] MEDS ORDERED: HURRICAINE EXT TUBE (BENZOCAINE) XX PRN (11:30)
[2021-07-13] MEDS ORDERED: MIDAZOLAM 2 MG/2 ML (VERSED) VIAL ONE (12:01)
[2021-07-13] MEDS ORDERED: PROPOFOL INJECTION 50 ML IV ONE ×2 (12:01→12:16)
--- NOTE | 2021-07-13 12:41 | Progress Note-Post Operative ---
Post-Operative Progess Note Surgeon (s)/Upholstery Estimator (s) Surgeon ALEXANDER IVERSON DO Upholstery Estimator: Matias Staton, MSIII Pre-Operative Diagnosis Rectal bleed, hx of polyps, chronic gastritis Post-Operative Diagnosis Duodenitis Gastritis Small sliding Hiatal hernia Polyp Diverticula int hemorrhoids poor prep Procedure & Operative Findings Date of Procedure 07/13/21 Procedure Performed/Findings EGD with bx Colon with cold bx PROCEDURE NOTE: After informed consent was obtained, the patient was brought to the endoscopy suite, placed in bed in left lateral decubitus position. He was administered IV sedation by the DIRECTOR UNIVERSITY who then monitored vitals the entire time, heart rate, blood pressure and pulse ox and the scope was inserted down the mouth through the esophagus into the stomach. On the way down, noted some mild esophagitis, took a picture, pushed into the stomach, pushed past the antrum into the duodenum. Duodenum appeared to have some inflamation in the bulb, but the 2nd and 3rd portion looked ok. Took a biopsy in the duodenum and the pulled back and did a biopsy of the antrum. Retroflexed the scope, saw a very small sliding hiatal hernia, took a picture of thisand then pulled the scope into the GE junction, took another picture of the esophagitis and then did a biopsy of the GE junction. Pushed the scope back into the stomach, suctioned all the air out of the stomach. At this point pulled the scope up the esophagus and out the mouth. Switched camera, switched gloves, went down below, started the colonoscopy. Pushed all the way in to about 140 cm to get all the way to cecum. On the way in noted some diverticula and took a picture. Also noted food particles. In the cecum took a picture of the appendiceal orifice and noted the ileocecal valve. Then slowly withdrew the scope, insufflating to look circumferentially at the miller starting in the cecum, up the ascending colon to the hepatic flexure, then down the transverse colon, splenic flexure, into the descending colon. Saw a small flat polyp and elected to just do a cold biopsy. Could not see all of the milelr because of fecal fluid; which I was unable to suction up because of the large food particles. Continued down into the sigmoid and finally into the rectum. Retroflexed in the rectal vault and saw some minimal internal hemorrhoids and took a picture of this. The patient tolerated the procedure and he recovered in the endoscopy suite. Anesthesia Type IV sedation by DIRECTOR UNIVERSITY Estimated Blood Loss Estimated blood loss (mL): scant Specimens/Packing Specimens Removed duodenal bx antral bx GE jxn bx Desc colon polyp bx ALEXANDER IVEROSN DO Jul 13, 2021 12:41
--- NOTE | 2021-07-13 12:43 | Endoscopy Discharge Instruct ---
Endo Procedure/Findings Findings 1.: Gastritis, Other Findings (duodenitis) 2.: Hiatal Hernia 3.: Polyp 4.: Diverticulosis, Internal Hemorrhoids Discharge Instructions - Activity: You might feel a little sleepy until tomorrow. This is due to the medicine you received to relax you. Until tomorrow, you should: NOT drive a car, operate machinery or power tools. NOT drink any alcoholic beverages. NOT make any important decisions or sign importortant papers. Do not return to work until tomorrow, unless otherwise instructed. Resume previous activities tomorrow. Diet: Start by taking liquids. If you tolerate liquids, advance to solid food. 1.: EGD in 3 years 2.: Colonoscopy in 1 year (because of incomplete prep) Notify Physician - If you experience excessive bleeding, unusual abdominal pain, fever, or chest pain, contact your doctor immediately. ALEXANDER IVERSON DO Jul 13, 2021 12:43
--- NOTE | 2021-07-13 13:31 | Anesthesia-General Post-Op ---
MAC Patient Condition Mental Status/LOC: Same as Preop Cardiovascular: Satisfactory Nausea/Vomiting: Absent Respiratory: Satisfactory Pain: Controlled Complications: Absent Post Op Complications Complications None Follow Up Care/Instructions Patient Instructions None needed. Anesthesiology Discharge Order Discharge Order Patient is doing well, no complaints, stable vital signs, no apparent adverse anesthesia problems. No complications reported per nursing. IDANIA KIRBY CRNA Jul 13, 2021 13:31
== END 2021-07-13 13:30 | disposition home or self-care (01) ==
LOC: ENDO 11:04
PROVIDERS: ATTEND Surgery
DX: K63.5 Polyp of colon (principal); K29.50 Unspecified chronic gastritis without bleeding; K21.00 Gastro-esophageal reflux disease with esophagitis, without bleeding; K29.80 Duodenitis without bleeding; K44.9 Diaphragmatic hernia without obstruction or gangrene; K31.A15 Gastric intestinal metaplasia without dysplasia, involving multiple sites; K57.31 Diverticulosis of large intestine without perforation or abscess with bleeding; K64.8 Other hemorrhoids; E66.9 Obesity, unspecified; Z68.31 Body mass index [BMI] 31.0-31.9, adult; Z79.899 Other long term (current) drug therapy
CPT/HCPCS: 88305

== ENCOUNTER 2022-07-19 12:08 | Emergency (ER) | payer OTHER ==
[~2022-07-19] VITALS: Ht 175 cm; Wt 93.0 kg
[~2022-07-19 12:08] MED LIST changes: +ALBU8.5H6 IH; -RT-ALBUINH IH
--- NOTE | 2022-07-19 12:33 | ED Chest Pain ---
General Chief Complaint: Chest Pain Stated Complaint: CHEST PAINS | LIGHTHEADED | NAUSEA | Nursing Triage Note: PT AMB TO RM 4 PT CO OF CHEST PAIN IN CENTER OF CHEST /10 STARTED APPROX 15 MIN AGO. WHILE SITTING ON COUCH.PT ALSO CO OF R HAND 3-4TH FINGERS HAVE NUMBNESS THAT STARTED AT SAME TIME. PT STATES HAS HAD NUMBNESS IN FINGERS BEFORE. Source: patient, family () Exam Limitations: no limitations History of Present Illness Date Seen by Provider: July 19, 2022 Time Seen by Provider: 12:18 Initial Comments 62-year-old male presents to the emergency department today for chest pain and tingling in his right hand. Symptoms started about 45 minutes prior to my evaluation and been constant since that time. He has had the same type of symptoms off and on for about 1 to 2 years. He had a stress test within the st couple of months which he states that he was told was normal. He tells me the pharmacist aide wanted to review more test but the insurance was not willing to pay for them. Currently he has a tightness in his anterior chest and some tingling in his right hand. He denies any shortness of breath. He states he got a little nauseated with that which is typical for these type of episodes. No recent illness to include fevers chills cough abdominal pain, change in bowel bladder habits. No sick contacts All other systems reviewed and negative except documented per HPI. Voice recognition software was used to help create this chart Allergies and Home Medications Allergies Coded Allergies: NKANo Known Allergies (Verified Allergy, Unknown, 09/01/05) Patient Home Medication List Home Medication List Reviewed: Yes Albuterol Sulfate (Ventolin Hfa) 1 Puff Puff, 2 PUFF IH Q4H PRN for WHEEZING, (Reported) Entered as Reported by: TETE REEVES on 07/07/21 1429 Aspirin (Aspir 81) 81 Mg Tablet.dr, 81 MG PO DAILY, (Reported) Entered as Reported by: SUSANNAH DAVIS on 04/12/13 1041 Atorvastatin Calcium (Lipitor) 40 Mg Tablet, 40 MG PO DAILY, (Reported) Entered as Reported by: TETE REEVES on 07/07/21 1429 Bupropion HCl (Wellbutrin Xl) 150 Mg Tab.er.24h, 150 MG PO BID, (Reported) Entered as Reported by: ELENO FRANCO on 09/01/161956 Meloxicam (Mobic) 15 Mg Tablet, 15 MG PO DAILY, (Reported) Entered as Reported by: TETE REEVES on 07/07/21 142 Metoprolol Succinate (Toprol Xl) 25 Mg Tab.er.24h, 25 MG PO DAILY, (Reported) Entered as Reported by: TETE REEVES on 07/07/21 142 Multivitamin (Multi Vitamin Daily) 1 Each Tablet, 1 TAB PO DAILY, (Reported) Entered as Reported by: MERLIN DELGADO on 04/12/13 1238 [place] 3 Polyunsat Fatty Acids (Fish Oil) 1,000 Mg Cap, 1,000 MG PO DAILY, (Repor jerilyn) Entered as Reported by: SUSANNAH DAVIS on 04/12/13 1041 Pantoprazole Sodium (Pantoprazole Sodium) 40 Mg Tablet.dr, 40 MG PO DAILY, (Reported) Entered as Reported by: TETE REEVES on 07/07/21 142 Tadalafil (Tadalafil) 5 Mg Tablet, 5 MG PO DAILY, (Reported) Entered as Reported by: TETE REEVES on 07/07/21 142 Review of Systems Review of Systems Constitutional: see HPI Past Cwsfjje-Ldldrd-Kueeur Hx Patient Social History Tobacco Use?: No Substance use?: No Alcohol Use?: Yes Alcohol type: Beer Alcohol Frequency: Rarely Immunizations Up To Date Tetanus Booster (TDap): More than 5yrs Influenza Vaccine Up-to-Date: Yes; Up-to-Date First/Initial COVID19 Vaccinat: 04/16/2020 Second COVID19 Vaccination [place]: 05/06/2020 Third COVID19 Vaccination Date: NO Past Medical History Surgery/Hospitalization HX: HEART ISSUES, HEART CATH, EGD, COLONOSCOPY Surgeries: Yes (shoulder and elbow, WRIST) Respiratory: Yes Sleep Apnea Currently Using CPAP: No Currently Using BIPAP: No Cardiac: Yes High Cholesterol, Hypertension Neurological: Yes Reproductive Disorders: No Sexually Transmitted Disease: No HIV/AIDS: No Genitourinary: No Gastrointestinal: Yes (thickening of stomach wall) Gastroesophageal Reflux, Ulcer Musculoskeletal: Yes (uses cane) Degenerate Disk Disease, Arthritis, Chronic Back Pain Endocrine: Yes (pre diabetes ) Hearing Impairment: Hard of Hearing Cancer: No Psychosocial: Yes Sleep Difficulties, Anxiety, Depression Integumentary: No Blood Disorders: No Physical Exam Vital Signs Vital Signs - First Documented 07/19/22 12:10 Pulse 63 Resp 15 B/P (MAP) 152/83 (106) Pulse Ox 96 O2 Delivery Room Air Capillary Refill : Less Than 3 Seconds Height, Weight, BMI Height: 5'10.00" Weight: 210lbs. 0.0oz. [id number]; 30.00 BMI Method:Stated General Appearance: No Apparent Distress, WD/WN HEENT: Normal ENT Inspection, Pharynx Normal Neck: Full Range of Motion, Normal Inspection, Non Tender, Supple Respiratory: Chest Non Tender, Lungs Clear, Normal Breath Sounds, No Accessory Muscle Use, No Respiratory Distress Cardiovascular: Regular Rate, Rhythm, No Murmur, Normal Peripheral Pulses Gastrointestinal: Normal Bowel Sounds, Non Tender, Soft Extremity: Normal Capillary Refill, Normal Inspection, Normal Range of Motion, Non Tender, No Calf Tenderness Neurologic/Psychiatric: Alert, Oriented x3, No Motor/Sensory Deficits Skin: Normal Color, Warm/Dry Progress/Results/Core Measures Results/Orders Lab Results Laboratory Tests Test 07/19/22 12:38 Range/Units White Blood Count 5.3 4.3-11.0 10^3/uL Red Blood Count 4.39 4.30-5.52 10^6/uL Hemoglobin 13.7 13.3-17.7 g/dL Hematocrit 41 40-54 % Mean Corpuscular Volume 93 80-99 fL Mean Corpuscular Hemoglobin 31 25-34 pg Mean Corpuscular Hemoglobin Concent 33 32-36 g/dL Red Cell Distribution Width 13.1 10.0-14.5 % Platelet Count 132 130-400 10^3/uL Mean Platelet Volume 9.7 9.0-12.2 fL Immature Granulocyte % (Auto) 0 % Neutrophils (%) (Auto) 51 42-75 % Lymphocytes (%) (Auto) 38 12-44 % Monocytes (%) (Auto) 8 0-12 % Eosinophils (%) (Auto) 2 0-10 % Basophils (%) (Auto) 1 0-10 % Neutrophils # (Auto) 2.7 1.8-7.8 10^3/uL Lymphocytes # (Auto) 2.0 1.0-4.0 10^3/uL Monocytes # (Auto) 0.4 0.0-1.0 10^3/uL Eosinophils # (Auto) 0.1 0.0-0.3 10^3/uL Basophils # (Auto) 0.0 0.0-0.1 10^3/uL Immature Granulocyte # (Auto) 0.0 0.0-0.1 10^3/uL Percent Immature Platelet Fraction 1.7 0.0-7.6 % Sodium Level 140 135-145 MMOL/L Potassium Level 4.5 3.6-5.0 MMOL/L Chloride Level 109 H 98-107 MMOL/L Carbon Dioxide Level 21 21-32 MMOL/L Anion Gap 10 5-14 MMOL/L Blood Urea Nitrogen 23 H 7-18 MG/DL Creatinine 1.13 0.60-1.30 MG/DL Estimat Glomerular Filtration Rate 74 BUN/Creatinine Ratio 20 Glucose Level 120 H 70-105 MG/DL Calcium Level 8.8 8.5-10.1 MG/DL Magnesium Level 1.9 1.6-2.4 MG/DL Troponin I < 0.028 <0.028 NG/ML My Orders Orders - JEFFREY BROUSSARD DO Ekg-Prn For Chest Pain Or Rhyt (07/19/22 12:15) Chest 1 View, Ap/Pa Only (07/19/22 12:24) Cbc With Automated Diff (07/19/22 12:25) Magnesium (07/19/22 12:25) Troponin I Fito (07/19/22 12:26) Iv/Invasive Line Insertion .IV INSERT (07/19/22 12:26) Basic Metabolic Panel (07/19/22 13:24) Vital Signs/I&O 07/19/22 07/19/22 12:10 14:02 Pulse 63 68 Resp 15 15 B/P (MAP) 152/83 (106) 126/74 Pulse Ox 96 96 O2 Delivery Room Air Room Air Blood Pressure Mean: 106 Comment Sinus rhythm rate of 63 bpm. Normal intervals. Normal axis. No ST or T wave abnormality. No ectopy. No STEMI. Diagnostic Imaging Comments AP chest x-ray shows no acute abnormality on my independent review Departure Communication (Admissions) Patient is hemodynamically stable. Negative troponin., Nonischemic EKG. No evidence for ACS. Chest x-ray is negative on my independent review as well. Electrolytes are normal, renal function normal. Blood counts normal. No ev idence for pulmonary or cardiac pathology or other emergent medical condition at this time. Impression Primary Impression: Atypical chest pain Disposition: HOME, SELF-CARE Condition: Stable Departure-Patient Inst. Referrals: BETY BARROSO APRN (PCP/Family) Primary Care Physician Patient Instructions: Chest Pain That Is Not Caused by the Heart (DC) Add. Discharge Instructions: You are seen in the emergency department today for chest pain. There is no indication of this, your heart, lungs or other emergent medical condition at this time. Recommend you follow-up with your primary doctor for further evaluation and treatment recommendations. Follow-up with your heart doctor should your symptoms persist. Return to the emergency department for any severe concerns or if your symptoms change in any way concerning to you. All discharge instructions reviewed with patient and/or family. Voiced understanding. JEFFREY BROUSSARD DO July 19, 2022 12:33
[2022-07-19 12:47] LABS: HEMOGLOBIN 13.7 g/dL (13.3-17.7); LYMPHOCYTES % (AUTO) 38 % (12-44); MEAN PLATELET VOLUME 9.7 fL (9.0-12.2)
[2022-07-19 12:49] LABS: BASOPHILS % (AUTO) 1 % (0-10); EOSINOPHILS # (AUTO) 0.1 10^3/uL (0.0-0.3); EOSINOPHILS % (AUTO) 2 % (0-10); HEMATOCRIT 41 % (40-54); MEAN CORPUSCULAR HEMOGLOBIN 31 pg (25-34); MEAN CORPUSCULAR HGB CONC 33 g/dL (32-36); MEAN CORPUSCULAR VOLUME 93 fL (80-99); MONOCYTES # (AUTO) 0.4 10^3/uL (0.0-1.0); MONOCYTES % (AUTO) 8 % (0-12); NEUTROPHILS # (AUTO) 2.7 10^3/uL (1.8-7.8); NEUTROPHILS % (AUTO) 51 % (42-75); PLATELET COUNT 132 10^3/uL (130-400); WHITE BLOOD COUNT 5.3 10^3/uL (4.3-11.0)
--- NOTE | 2022-07-19 12:50 | Diagnostic Imaging Report ---
INDICATION: Chest pain starting approximately 15 minutes ago.. TECHNIQUE: Single view chest 12:31 PM. CORRELATION STUDY: 12/09/2020 FINDINGS: Given technique, heart size, mediastinum and vasculature overall within normal limits. The lungs are clear with no consolidating infiltrate. There is no significant effusion or pneumothorax. IMPRESSION: 1. Generally stable, negative appearing portable chest. Dictated by: Dictated on workstation # [id number]
[2022-07-19 13:32] LABS: POTASSIUM 4.5 MMOL/L (3.6-5.0)
[2022-07-19 13:34] LABS: CALCIUM 8.8 MG/DL (8.5-10.1)
[2022-07-19 13:38] LABS: CREATININE SERUM 1.13 MG/DL (0.60-1.30)
[2022-07-19 14:02] VITALS: BP 126/74
== END 2022-07-19 14:02 | disposition home or self-care (01) ==
LOC: EDUNIT# 12:08 → ER 12:10
DX: R07.89 Other chest pain (principal); Z98.61 Coronary angioplasty status
CPT/HCPCS: 36415; 71045; 80048; 83735; 84484; 85025

== ENCOUNTER 2022-08-18 05:54 | Outpatient (CLI) | payer OTHER ==
[~2022-08-18] VITALS: Ht 177.8 cm; Wt 102.4 kg
[2022-08-18] MEDS ORDERED: ASPI-999 PO (11:27)
[2022-08-18] MEDS ORDERED: MULT-1136 PO (11:27)
[2022-08-18] MEDS ORDERED: MELO15TA39 PO (11:27)
[2022-08-18] MEDS ORDERED: OMEG1CAP58 PO (11:27)
== END 2022-08-18 11:31 | disposition home or self-care (01) ==
LOC: PREOP 05:54
PROVIDERS: ATTEND Surgery
DX: Z01.818 Encounter for other preprocedural examination (principal)

== ENCOUNTER 2022-08-30 09:01 | Day surgery (SDC) | payer OTHER ==
[~2022-08-30] VITALS: Ht 178 cm; Wt 102.4 kg
[~2022-08-30 09:01] MED LIST changes: +ASPI-999 PO; +MELO15TA39 PO; +MULT-1136 PO; +OMEG1CAP58 PO
[2022-08-30] MEDS ORDERED: LACTATED RINGERS 1,000 ML IV STA (09:04)
[2022-08-30] MEDS ORDERED: HURRICAINE EXT TUBE (BENZOCAINE) XX PRN (09:15)
[2022-08-30 09:30] VITALS: BP 146/77
--- NOTE | 2022-08-30 09:41 | Progress Note-Pre Operative ---
Pre-Operative Progress Note Date of Available H&P: August 10, 2022 Date H&P Reviewed: Aug 30, 2022 Time H&P Reviewed: 09:40 History & Physical: H&P Reviewed, Patient Examed, No changes noted Pre-Operative Diagnosis: Casanova's Esophagus, Hx of polyps, poor prep ALEXANDER IVERSON DO Aug 30, 2022 09:41
[2022-08-30] MEDS ORDERED: PROPOFOL INJECTION 50 ML IV ONE ×2 (10:13→10:30)
[2022-08-30] MEDS ORDERED: HURRICAINE EXT TUBE (BENZOCAINE) ONE (10:16)
[2022-08-30] MEDS ORDERED: LACTATED RINGERS 1,000 ML IV ONE (10:16)
[2022-08-30 10:40] VITALS: BP 117/61
--- NOTE | 2022-08-30 10:40 | Anesthesia-General Post-Op ---
MAC Patient Condition Mental Status/LOC: Same as Preop Cardiovascular: Satisfactory Nausea/Vomiting: Absent Respiratory: Satisfactory Pain: Controlled Complications: Absent Post Op Complications Complications None Follow Up Care/Instructions Patient Instructions None needed. Anesthesiology Discharge Order Discharge Order Patient is doing well, no complaints, stable vital signs, no apparent adverse anesthesia problems. No complications reported per nursing. MISSAEL COLES CRNA Aug 30, 2022 10:40
[2022-08-30 10:45] VITALS: BP 118/62
[2022-08-30 10:50] VITALS: BP 121/68
--- NOTE | 2022-08-30 11:19 | Progress Note-Post Operative ---
Post-Operative Progess Note Surgeon (s)/Metal Buildings Assembler (s) Surgeon ALEXANDER IVERSON DO Metal Buildings Assembler: MIRIAM Alejandro student Pre-Operative Diagnosis Casanova's Esophagus, Hx of polyps, poor prep Post-Operative Diagnosis Casanova's esophagus hiatal hernia polyp diverticula int hemorrhoids Procedure & Operative Findings Date of Procedure 08/30/22 Procedure Performed/Findings EGD with bx Colonoscopy with biopsy PROCEDURE NOTE: After informed consent was obtained, the patient was brought to the endoscopy suite, placed in bed in left lateral decubitus position. He was administered IV sedation by the RABIES INSPECTOR who then monitored vitals the entire time, heart rate, blood pressure and pulse ox and the scope was inserted down the mouth through the esophagus into the stomach. On the way down, noted some moderate esophagitis, took a picture, pushed into the stomach, pushed past the antrum into the duodenum. Duodenum looked good. Pulled back and did a biopsy of antrum, then retroflexed the scope, saw small hiatal hernia, took a picture of this and then pulled the scope into the GE junction, took another picture and then did a biopsy of the GE junction. Pushed the scope back into the stomach, suctioned all the air out of the stomach. At this point pulled the scope up the esophagus and out the mouth. Switched camera, switched gloves, went down below and started the colonoscopy. Pushed all the way to about 140 cm and pushed into the cecum, took a picture of appendiceal orifice and noted the ileocecal valve. Found a small polyp in the cecum and removed it with biopsy. Then slowly withdrew the scope insufflating to look circumferentially at the miller starting in the cecum, up the ascending colon to the hepatic flexure, then down the transverse colon, splenic flexure, into the descending colon down in the sigmoid and then into the rectal vault and retroflexed the scope. Took picture of the internal hemorrhoids. I had seen some diverticula during the procedure and took a picture of them as well. The patient tolerated the procedure and he recovered in the endoscopy suite. Recommended for repeat colonoscopy in 5 years Anesthesia Type IV sedation by RABIES INSPECTOR Estimated Blood Loss Estimated blood loss (mL): scant Specimens/Packing Specimens Removed antral bx body of stomach bx GE jxn bx Cecal polyp ALEXANDER IVERSON DO Aug 30, 2022 11:19
--- NOTE | 2022-08-30 11:21 | Endoscopy Discharge Instruct ---
Endo Procedure/Findings Findings 1.: Casanova's Esophagus 2.: Hiatal Hernia, Gastritis 3.: Polyp 4.: Diverticulosis, Internal Hemorrhoids Discharge Instructions - Activity: You might feel a little sleepy until tomorrow. This is due to the medicine you received to relax you. Until tomorrow, you should: NOT drive a car, operate machinery or power tools. NOT drink any alcoholic beverages. NOT make any important decisions or sign importortant papers. Do not return to work until tomorrow, unless otherwise instructed. Resume previous activities tomorrow. Diet: Start by taking liquids. If you tolerate liquids, advance to solid food. 1.: EGD in 1 year 2.: Colonscopy in 5 years Notify Physician - If you experience excessive bleeding, unusual abdominal pain, fever, or chest pain, contact your doctor immediately. Follow-Up: Other Follow up in my office in one week ALEXANDER IVERSON DO Aug 30, 2022 11:21
[2022-08-30 11:30] VITALS: BP 121/68
== END 2022-08-30 11:35 | disposition home or self-care (01) ==
LOC: ENDO 09:01
PROVIDERS: ATTEND Surgery
DX: Z12.11 Encounter for screening for malignant neoplasm of colon (principal); K22.70 Barrett's esophagus without dysplasia; K44.9 Diaphragmatic hernia without obstruction or gangrene; K63.5 Polyp of colon; K57.30 Diverticulosis of large intestine without perforation or abscess without bleeding; K64.8 Other hemorrhoids; K21.00 Gastro-esophageal reflux disease with esophagitis, without bleeding; Z79.899 Other long term (current) drug therapy